=== PATIENT | female | born 1955 | race Caucasian/White ===

== ENCOUNTER 2017-09-04 23:27 | Emergency (ER) | payer OTHER ==
[~2017-09-04 23:27] MED LIST: ACET1TAB12 PO; ASPI-1005 PO; ATOR20TA65 PO; AUD IH; CHOL200074 PO; DICY10 PO; GABA-531 PO; PROM25 PO; Valsartan PO
== END 2017-09-05 00:25 | disposition left against medical advice (07) ==
LOC: EDH 23:27
DX: Z53.21 Procedure and treatment not carried out due to patient leaving prior to being seen by health care provider (principal)

== ENCOUNTER → 2018-04-27 | Outpatient (CLI) | payer OTHER | END | disposition home or self-care (01) | LOC: SHCH 13:40 | PROVIDERS: ATTEND Internal Medicine Cardiovascular Disease | DX: I35.1 Nonrheumatic aortic (valve) insufficiency (principal) | CPT/HCPCS: 93306 ==

== ENCOUNTER → 2018-12-20 | Outpatient (CLI) | payer OTHER | END | disposition home or self-care (01) | LOC: RAH 07:57 | DX: Z12.31 Encounter for screening mammogram for malignant neoplasm of breast (principal) | CPT/HCPCS: 77067 ==

== ENCOUNTER 2019-03-03 12:58 | Emergency (ER) | payer OTHER ==
[2019-03-03 13:15] LABS: BASOPHILS % (AUTO) 0.5 % (0.0-5.0); EOSINOPHILS % (AUTO) 3.4 % (0.0-8.0); HEMATOCRIT 38.4 % (36-48); LYMPHOCYTES % (AUTO) 34.8 % (21.0-51.0); MEAN CORPUSCULAR HEMOGLOBIN 30.1 pg (27.0-33.0); MEAN CORPUSCULAR HGB CONC 31.5 g/dL (32.0-36.0); MEAN CORPUSCULAR VOLUME 95.5 fL (79-99); PLATELET COUNT (AUTO) 279 K/uL (130-400); RED BLOOD CELL COUNT(AUTO) 4.02 MIL/uL (4.00-5.50); RED CELL DISTRIBUTION WIDTH 12.4 % (11.0-15.5); WHITE BLOOD COUNT (AUTO) 7.3 K/uL (4.8-10.8)
[2019-03-03] MEDS ORDERED: ONDANSETRON HCL 4 MG/2 ML VIAL ONE ×2 (13:26→16:04)
[2019-03-03] MEDS ORDERED: MORPHINE SULFATE 4 MG/1ML SYG ONE ×2 (13:26→13:36)
[2019-03-03 13:27] LABS: CREATININE 0.9 mg/dL (0.5-1.5); POTASSIUM 4.5 mmol/L (3.5-5.1)
[2019-03-03] MEDS ORDERED: HYDROMORPHONE 1 MG/1 ML AMP ONE ×3 (13:59→15:58)
[2019-03-03] MEDS ORDERED: KETAMINE 50MG/ML SYRINGE 50 MG/ML DISP.SYRIN IV ONE (15:54)
[2019-03-03] MEDS ORDERED: SODIUM CHLORIDE 0.9% 1000ML 1,000 ML IV ONE (16:09)
[2019-03-03] MEDS ORDERED: LABETALOL 20 MG/4 ML DISP.SYRIN IV ONE (16:25)
== END 2019-03-03 17:54 | disposition home or self-care (01) ==
LOC: EDH 12:58
DX: S52.501A Unspecified fracture of the lower end of right radius, initial encounter for closed fracture (principal); I10 Essential (primary) hypertension; Z90.710 Acquired absence of both cervix and uterus; Z98.890 Other specified postprocedural states; Z87.891 Personal history of nicotine dependence; W11.XXXA Fall on and from ladder, initial encounter; Y93.89 Activity, other specified; Y92.89 Other specified places as the place of occurrence of the external cause; Y99.8 Other external cause status
CPT/HCPCS: 25605; 36415; 73110 ×2; 80048; 85025; 96374; 96375; 96376; 99152; 99153; 99285; J1170 ×3; J2270 ×2; J2405 ×2; J3490; J7030

== ENCOUNTER 2019-03-12 07:19 | Day surgery (SDC) | payer OTHER ==
[2019-03-09 13:09] LABS: BASOPHILS % (AUTO) 0.4 % (0.0-5.0); EOSINOPHILS % (AUTO) 1.8 % (0.0-8.0); HEMATOCRIT 36.7 % (36-48); LYMPHOCYTES % (AUTO) 28.6 % (21.0-51.0); MEAN CORPUSCULAR HEMOGLOBIN 29.8 pg (27.0-33.0); MEAN CORPUSCULAR HGB CONC 30.2 g/dL (32.0-36.0); MEAN CORPUSCULAR VOLUME 98.4 fL (79-99); MONOCYTES % (AUTO) 7.1 % (3.0-13.0); NEUTROPHILS % (AUTO) 61.7 % (40.0-77.0); PLATELET COUNT (AUTO) 305 K/uL (130-400); RED BLOOD CELL COUNT(AUTO) 3.73 MIL/uL (4.00-5.50); RED CELL DISTRIBUTION WIDTH 12.8 % (11.0-15.5); WHITE BLOOD COUNT (AUTO) 6.7 K/uL (4.8-10.8)
[2019-03-09 13:22] LABS: CREATININE 0.8 mg/dL (0.5-1.5); POTASSIUM 4.9 mmol/L (3.5-5.1)
[2019-03-09 13:23] VITALS: BP 149/77
--- NOTE | 2019-03-09 19:23 | NUR ---
ABNORMAL LABS H/H 11.1/36.[address] CASTELLON. NO FURTHER ORDERS, MAY PROCEED WITH PLANNED PROCEDURE.
[~2019-03-12] VITALS: Ht 162.6 cm; Wt 62.9 kg
[2019-03-12] VITALS (14 sets, daily range): BP systolic 98–138; BP diastolic 36–77
[2019-03-12] MEDS: CEFAZOLIN SODIUM 1 GM VIAL IVP SCH ×2 (06:00→09:55)
[~2019-03-12 07:19] MED LIST changes: -ASPI-1005 PO; -ATOR20TA65 PO; -CHOL200074 PO; +ZOLP10TA2 PO
[2019-03-12] MEDS ORDERED: LACTATED RINGERS 1000ML 1,000 ML IV ONE (07:31)
[2019-03-12] MEDS ORDERED: HYDR-4060 PO ×2 (07:48→14:05)
[2019-03-12] MEDS ORDERED: HYDROMORPHONE 1 MG/1 ML AMP ONE (08:45)
[2019-03-12] MEDS ORDERED: MIDAZOLAM HCL 1 MG/ML 2ML VIAL ONE (09:05)
[2019-03-12] MEDS ORDERED: LIDOCAINE PF 2% 5ML ABBOJECT ONE (09:05)
[2019-03-12] MEDS ORDERED: PROPOFOL 10 MG/ML 20ML VIAL IV ONE (09:05)
[2019-03-12] MEDS ORDERED: ROCURONIUM 10MG/1ML SYR 10 MG/ML ML ONE (09:06)
[2019-03-12] MEDS ORDERED: FENTANYL CITRATE PF 50 MCG/1 ML 2ML VIAL ONE ×2 (09:07→14:01)
[2019-03-12] MEDS ORDERED: ONDANSETRON HCL 4 MG/2 ML VIAL ONE (09:08)
[2019-03-12] MEDS ORDERED: DEXMEDETOMIDINE HCL 200 MCG in SODIUM CHLORIDE 0.9% 50 ML IV SCH (10:00)
[2019-03-12] MEDS ORDERED: MEPERIDINE-PF 25 MG/ML SYG ONE ×2 (10:17→12:55)
[2019-03-12] MEDS ORDERED: CEFAZOLIN SODIUM 1 GM VIAL ONE ×2 (10:35→13:46)
[2019-03-12] MEDS ORDERED: EPHEDRINE SULFATE 50 MG/ML AMPULE ONE (10:53)
[2019-03-12] MEDS ORDERED: KETOROLAC TROMETHAMINE 30MG/ML ONE (13:15)
[2019-03-12] MEDS ORDERED: METOCLOPRAMIDE 10 MG/2 ML VIAL ONE (13:26)
[2019-03-12] MEDS ORDERED: NEOSTIGMINE 5MG/5ML SYR IV ONE (14:02)
[2019-03-12] MEDS ORDERED: GLYCOPYRROLATE 1 MG/5 ML SYRINGE ONE (14:02)
[2019-03-12] MEDS ORDERED: CEPH500B PO (14:05)
[2019-03-12] MEDS ORDERED: IBUP-2070 PO (14:05)
--- NOTE | 2019-03-12 15:10 | NUR ---
PATIENT ARRIVED TO DAY PATIENT VIA STRETCHER BY MADY DANIEL. PATIENT [id number], RESPIRATIONS UNLABORED, VITAL SIGNS STABLE, DENIES ANY PAIN AT THIS TIME. DRESSING TO RIGHT WRIST WITH CARROL WRAP IS DRY AND INTACT. PATIENT ABLE TO MOVE FINGERS TO RIGHT HAND AND LEFT HAND. SLING IN PLACE TO RUE. PATIENT STATES THAT RIGHT ARM IS "NUMB". PATIENT'S SPOUSE AT BEDSIDE.
--- NOTE | 2019-03-12 15:15 | NUR ---
DISCHARGE INSTRUCTIONS PROVIDED TO PATIENT'S SPOUSE (BLAKE MARTIN). HANDOUTS PROVIDED WITH DR CASTELLON INSTRUCTIONS PROVIDED AND EXPLAINED. PRESCRIPTIONS PROVIDED AND FOLLOW UP APPOINTMENT PROVIDED. ALL QUESTIONS AND CONCERNS ADDRESSED. PATIENT'S SPOUSE VERBALIZED UNDERSTANDING OF INSTRUCTIONS.
--- NOTE | 2019-03-12 15:50 | NUR ---
PATIENT DISCHARGED FROM FACILITY VIA WHEELCHAIR BY NURSE. PATIENT ASSISTED INTO PRIVATE VEHICLE DRIVEN BY SPOUSE.
== END 2019-03-12 15:50 | disposition home or self-care (01) ==
LOC: DAH 07:19
PROVIDERS: ATTEND Orthopaedic Surgery
DX: S52.501A Unspecified fracture of the lower end of right radius, initial encounter for closed fracture (principal); I10 Essential (primary) hypertension; E78.5 Hyperlipidemia, unspecified; G62.9 Polyneuropathy, unspecified; J44.9 Chronic obstructive pulmonary disease, unspecified; Z98.890 Other specified postprocedural states; Z90.710 Acquired absence of both cervix and uterus; W19.XXXA Unspecified fall, initial encounter; Y93.89 Activity, other specified; Y92.89 Other specified places as the place of occurrence of the external cause; Y99.8 Other external cause status; Z79.899 Other long term (current) drug therapy
CPT/HCPCS: 25609; 36415; 64415; 73110; 76942; 80048; 85025; A4215; A4221; A4222; A4223; A4565; A4649 ×3; A4663; A4930; C1713 ×6; C1762; C1776 ×2; G0168; J0690 ×3; J1170; J1885; J2001; J2175 ×2; J2250; J2405; J2704; J2710; J2765; J3010 ×2; J3490 ×3; J7120 ×2

== ENCOUNTER → 2020-01-23 | Outpatient (CLI) | payer OTHER ==
[~2020-01-23] MED LIST changes: -ACET1TAB12 PO; +CEPH500B PO; +HYDR-4060 PO; +IBUP-2070 PO
== END | disposition home or self-care (01) ==
LOC: SHCH 14:26
PROVIDERS: ATTEND Internal Medicine Cardiovascular Disease
DX: R00.2 Palpitations (principal)
CPT/HCPCS: 93306; 93356

== ENCOUNTER → 2020-01-29 | Outpatient (CLI) | payer OTHER | END | disposition home or self-care (01) | LOC: SHCH 10:00 | PROVIDERS: ATTEND Internal Medicine Cardiovascular Disease | DX: I65.23 Occlusion and stenosis of bilateral carotid arteries (principal); H34.9 Unspecified retinal vascular occlusion | CPT/HCPCS: 93880 ==

== ENCOUNTER 2020-02-29 06:05 | Day surgery (SDC) | payer OTHER ==
[2020-02-27 10:15] LABS: BILIRUBIN,URINE Negative (NEGATIVE); COLOR,URINE Yellow (YELLOW); GLUCOSE, URINE (UA) Negative (NEGATIVE); KETONES,URINE Negative (NEGATIVE); LEUKOCYTE ESTERASE ,URINE Negative (NEGATIVE); NITRATE,URINE Negative (NEGATIVE); OCCULT BLOOD,URINE Negative (NEGATIVE); PH,URINE 5.5 (5.0-8.0); PROTEIN,URINE Negative (NEGATIVE); UROBILINOGEN,URINE 0.2 mg/dL (0.2-1.0)
[2020-02-27 10:20] LABS: APPEARANCE,URINE Clear (CLEAR)
[2020-02-27 10:29] LABS: BASOPHILS % (AUTO) 0.2 % (0.0-5.0); EOSINOPHILS % (AUTO) 0.1 % (0.0-8.0); HEMATOCRIT 39.7 % (36-48); MEAN CORPUSCULAR HEMOGLOBIN 30.8 pg (27.0-33.0); MEAN CORPUSCULAR HGB CONC 31.7 g/dL (32.0-36.0); MEAN CORPUSCULAR VOLUME 97.1 fL (79-99); MONOCYTES % (AUTO) 1.9 % (3.0-13.0); NEUTROPHILS % (AUTO) 87.5 % (40.0-77.0); PLATELET COUNT (AUTO) 295 K/uL (130-400); RED BLOOD CELL COUNT(AUTO) 4.09 MIL/uL (4.00-5.50); RED CELL DISTRIBUTION WIDTH 12.9 % (11.0-15.5); WHITE BLOOD COUNT (AUTO) 11.7 K/uL (4.8-10.8)
[2020-02-27 10:40] LABS: CREATININE 0.8 mg/dL (0.5-1.5); POTASSIUM 4.2 mmol/L (3.5-5.1)
[2020-02-27 10:51] LABS: INR 0.88 (0.85-1.15); PARTIAL THROMBOPLASTIN TIME 24.3 SEC (26.3-35.5); PROTHROMBIN TIME 9.5 SEC (9.6-11.6)
[2020-02-27 14:18] VITALS: BP 174/83
[~2020-02-29] VITALS: Ht 233.7 cm; Wt 61.6 kg
[2020-02-29] VITALS (9 sets, daily range): BP systolic 125–157; BP diastolic 66–87
[~2020-02-29 06:05] MED LIST changes: +ACET1TAB25 PO; +ALBU8.5H8 IH; -AUD IH; +BUDE10.2 IH; -CEPH500B PO; +CLOP75TA32 PO; -GABA-531 PO; -HYDR-4060 PO; -IBUP-2070 PO; +METH4TAB15 PO; +PANT40TA54 PO; +ROSU20TA23 PO; +SODIUM CHLORIDE 0.9% 500ML 500 ML IV SCH; +TIZA4CAP PO; +VALS320T16 PO; -Valsartan PO; -ZOLP10TA2 PO
[2020-02-29] MEDS ORDERED: SODIUM CHLORIDE 0.9% 1000ML 1,000 ML IV ONE (07:04)
[2020-02-29] MEDS ORDERED: SODIUM BICARB 50MEQ 50ML VIAL 50 ML ONE (07:05)
[2020-02-29] MEDS ORDERED: HEPARIN SODIUM 1000UNIT/ML 10ML VIAL ONE (07:06)
[2020-02-29] MEDS ORDERED: IODIXANOL 320 MG/ML 100 ML VIAL ONE ×2 (07:06→07:11)
[2020-02-29] MEDS ORDERED: MIDAZOLAM HCL 1 MG/ML 2ML VIAL ONE (07:07)
[2020-02-29] MEDS ORDERED: FENTANYL CITRATE PF 50 MCG/1 ML 2ML VIAL ONE (07:07)
[2020-02-29] MEDS ORDERED: LIDOCAINE HCL 2% 20ML ONE (07:07)
[2020-02-29] MEDS ORDERED: NITROGLYCERIN 2 MG/VIAL VIAL IV ONE (07:12)
[2020-02-29] MEDS ORDERED: PRASUGREL HCL 10 MG TABLET ONE (08:07)
[2020-02-29] MEDS ORDERED: LABETALOL HCL 5 MG/ML 20ML VIAL IV ONE (08:19)
[2020-02-29] MEDS ORDERED: SODIUM CHLORIDE 0.9% 1000ML 1,000 ML IV SCH (09:15)
== END 2020-02-29 12:00 | disposition home or self-care (01) ==
LOC: DAH 06:05
PROVIDERS: ATTEND Internal Medicine Cardiovascular Disease
DX: I65.23 Occlusion and stenosis of bilateral carotid arteries (principal); I11.0 Hypertensive heart disease with heart failure; I50.32 Chronic diastolic (congestive) heart failure; E85.9 Amyloidosis, unspecified; E78.5 Hyperlipidemia, unspecified; J44.9 Chronic obstructive pulmonary disease, unspecified; F17.210 Nicotine dependence, cigarettes, uncomplicated; R93.1 Abnormal findings on diagnostic imaging of heart and coronary circulation; M47.814 Spondylosis without myelopathy or radiculopathy, thoracic region; Z72.89 Other problems related to lifestyle; Z90.710 Acquired absence of both cervix and uterus; Z79.899 Other long term (current) drug therapy; Z98.890 Other specified postprocedural states; Z86.73 Personal history of transient ischemic attack (TIA), and cerebral infarction without residual deficits; Z79.01 Long term (current) use of anticoagulants
CPT/HCPCS: 36223; 36415; 71045; 80048; 81003; 85025; 85610; 85730; 93005; A4215; A4216; A4221; A4222; A4223 ×3; A4606; A4663; C1760; C1769; C1894 ×2; J1644; J2250; J3010; J3490 ×4; J7030; Q9967 ×2; 99156; 99157

== ENCOUNTER 2020-06-06 08:02 | Day surgery (SDC) | payer OTHER ==
[2020-06-04 10:37] LABS: BASOPHILS % (AUTO) 0.7 % (0.0-5.0); EOSINOPHILS % (AUTO) 1.7 % (0.0-8.0); HEMATOCRIT 38.2 % (36-48); LYMPHOCYTES % (AUTO) 22.6 % (21.0-51.0); MEAN CORPUSCULAR HEMOGLOBIN 29.9 pg (27.0-33.0); MEAN CORPUSCULAR HGB CONC 31.4 g/dL (32.0-36.0); MONOCYTES % (AUTO) 4.8 % (3.0-13.0); NEUTROPHILS % (AUTO) 69.9 % (40.0-77.0); PLATELET COUNT (AUTO) 336 K/uL (130-400); RED BLOOD CELL COUNT(AUTO) 4.02 MIL/uL (4.00-5.50); RED CELL DISTRIBUTION WIDTH 12.9 % (11.0-15.5)
[2020-06-04 10:51] LABS: INR 0.94 (0.85-1.15); PROTHROMBIN TIME 10.3 SEC (9.6-11.6)
[2020-06-04 10:52] LABS: PARTIAL THROMBOPLASTIN TIME 24.8 SEC (26.3-35.5)
[2020-06-04 10:53] LABS: CREATININE 0.8 mg/dL (0.5-1.5); POTASSIUM 4.1 mmol/L (3.5-5.1)
[2020-06-05 10:31] VITALS: BP 186/79
[2020-06-06] VITALS (10 sets, daily range): BP systolic 114–148; BP diastolic 56–87
[~2020-06-06] VITALS: Ht 160 cm; Wt 62.1 kg
[~2020-06-06 08:02] MED LIST changes: -ALBU8.5H8 IH; -BUDE10.2 IH; +CEFAZOLIN SODIUM 1 GM VIAL IVP SCH; -CLOP75TA32 PO; +LINA145C PO; -METH4TAB15 PO; +PRAS10TA9 PO; +ZOLP10TA2 PO
[2020-06-06] MEDS ORDERED: SODIUM CHLORIDE 0.9% 1000ML 1,000 ML IV ONE (08:07)
[2020-06-06] MEDS ORDERED: MEPERIDINE-PF 25 MG/ML SYG ONE ×2 (08:22→09:27)
[2020-06-06] MEDS ORDERED: CEFAZOLIN SODIUM 1 GM VIAL ONE (08:22)
[2020-06-06] MEDS ORDERED: BUPIVACAINE/PF 0.25% 30ML VIAL IJ ONE (08:22)
[2020-06-06] MEDS ORDERED: IOHEXOL-350 50ML VIAL IV ONE (08:22)
[2020-06-06] MEDS ORDERED: MIDAZOLAM HCL 1 MG/ML 2ML VIAL ONE ×3 (08:22→09:51)
[2020-06-06] MEDS ORDERED: LIDOCAINE HCL 1% MDV 50ML VIAL ONE (08:23)
[2020-06-06] MEDS ORDERED: FENTANYL CITRATE PF 50 MCG/1 ML 2ML VIAL ONE ×2 (09:51→10:35)
[2020-06-06] MEDS: ACETAMINOPHEN-CODEINE 300/30MG TAB PO PRN ×2 (13:34→14:33)
== END 2020-06-06 15:20 | disposition home or self-care (01) ==
LOC: DAH 08:02
PROVIDERS: ATTEND Internal Medicine Cardiovascular Disease
DX: I46.9 Cardiac arrest, cause unspecified (principal); I49.5 Sick sinus syndrome; I65.23 Occlusion and stenosis of bilateral carotid arteries; I10 Essential (primary) hypertension; E78.5 Hyperlipidemia, unspecified; I73.9 Peripheral vascular disease, unspecified; J44.9 Chronic obstructive pulmonary disease, unspecified; Z90.710 Acquired absence of both cervix and uterus; Z98.890 Other specified postprocedural states; Z79.01 Long term (current) use of anticoagulants; Z79.82 Long term (current) use of aspirin; Z79.899 Other long term (current) drug therapy
CPT/HCPCS: 33208; 33286; 36415; 71045; 80048; 85025; 85610; 85730; A4215; A4216; A4221; A4222; A4223 ×3; A4606; A4649; A4663; C1785; C1898 ×2; J0690; J2175 ×2; J2250 ×3; J3010 ×2; J3490 ×2; J7030; Q9967; 99156; 99157

== ENCOUNTER → 2022-11-02 | Outpatient (CLI) | payer OTHER ==
[~2022-11-02] MED LIST changes: +ACET-2079 PO; -ACET1TAB25 PO; -CEFAZOLIN SODIUM 1 GM VIAL IVP SCH; -DICY10 PO; -LINA145C PO; +PANT40TA PO; -PANT40TA54 PO; -SODIUM CHLORIDE 0.9% 500ML 500 ML IV SCH; -TIZA4CAP PO
== END | disposition home or self-care (01) ==
LOC: RAH 10:33
PROVIDERS: ATTEND Family Medicine
DX: Z12.31 Encounter for screening mammogram for malignant neoplasm of breast (principal)
CPT/HCPCS: 77067

== ENCOUNTER 2023-02-08 21:06 | Inpatient (IN) | payer OTHER ==
[~2023-02-08] VITALS: Ht 154.9 cm; Wt 69.9 kg
[2023-02-08] MEDS ORDERED: 0.9%NACL 1000ML 1,000 ML IV ONE (21:30)
[2023-02-08 21:48] LABS: BASOPHILS # (AUTO) 0.02 K/uL (0.00-0.20); BASOPHILS % (AUTO) 0.2 % (0.0-5.0); HEMATOCRIT 29.4 % (36-48); IMMATURE GRANULOCYTE ABSOLUTE 0.09 K/uL (0-1); LYMPHOCYTES # (AUTO) 0.3 K/uL (1.0-4.8); LYMPHOCYTES % (AUTO) 3.1 % (21.0-51.0); MEAN CORPUSCULAR HEMOGLOBIN 30.7 pg (27.0-33.0); MEAN CORPUSCULAR HGB CONC 33.7 g/dL (32.0-36.0); MEAN CORPUSCULAR VOLUME 91.3 fL (79-99); MONOCYTES # (AUTO) 0.6 K/uL (0.1-1.0); MONOCYTES % (AUTO) 6.7 % (3.0-13.0); NEUTROPHILS # (AUTO) 8.2 K/uL (1.8-7.7); PLATELET COUNT (AUTO) 166 K/uL (130-400); RED BLOOD CELL COUNT(AUTO) 3.22 MIL/uL (4.00-5.50); RED CELL DISTRIBUTION WIDTH 16.6 % (11.0-15.5); WHITE BLOOD COUNT (AUTO) 9.2 K/uL (4.8-10.8)
[2023-02-08 21:53] LABS: APPEARANCE,URINE CLOUDY (CLEAR); BILIRUBIN,URINE NEGATIVE (NEGATIVE); COLOR,URINE YELLOW (YELLOW); GLUCOSE, URINE (UA) NEGATIVE (NEGATIVE); KETONES,URINE NEGATIVE (NEGATIVE); LEUKOCYTE ESTERASE ,URINE 500 Leu/uL (NEGATIVE); NITRATE,URINE NEGATIVE (NEGATIVE); OCCULT BLOOD,URINE MODERATE (NEGATIVE); PROTEIN,URINE 300 mg/dL (NEGATIVE); UROBILINOGEN,URINE 0.2 mg/dL (0.2-1.0)
[2023-02-08 22:01] LABS: ADD UA MICROSCOPIC YES
[2023-02-08 22:03] LABS: INR 0.94 (0.85-1.15); PROTHROMBIN TIME 10.9 SEC (9.6-11.6)
[2023-02-08 22:04] LABS: PARTIAL THROMBOPLASTIN TIME 33.8 SEC (26.3-35.5)
[2023-02-08 22:07] LABS: BACTERIA,URINE FEW /HPF (None Seen); MUCUS,URINE RARE LPF (None Seen); NON-SQUAMOUS EPITHELIAL CELL 2 /HPF (0-2); OTHER CASTS, URINE 3 /LPF (None Seen); SQUAMOUS EPITHELIAL CELL,UR RARE /HPF (0-2); WBC CLUMP MANY /HPF (0-1); WBC,URINE TNTC /HPF (0-1); YEAST,URINE BUDDING FEW /HPF (None Seen)
[2023-02-08 22:25] LABS: ALBUMIN 3.1 g/dL (3.5-5.0); BILIRUBIN,TOTAL 0.6 mg/dL (0.2-1.0); POTASSIUM 4.5 mmol/L (3.5-5.1); TOTAL PROTEIN, SERUM 6.5 g/dL (6.0-8.3)
[2023-02-08] MEDS ORDERED: 0.9%NACL 1000ML 2,000 ML IV ONE (22:30)
[2023-02-08] MEDS ORDERED: CEFTRIAXONE 1G VIAL IVPB ONE (23:00)
[2023-02-08] MEDS ORDERED: LACTULOSE 20 GM/30 ML UDCUP PO PRN (23:30)
[2023-02-08] MEDS ORDERED: CEFTRIAXONE 1G VIAL 1 GM in 0.9%NACL 50ML 50 ML IV SCH (23:30)
[2023-02-08] MEDS ORDERED: 0.9%NACL 1000ML 1,000 ML IV SCH (23:30)
[2023-02-08] MEDS ORDERED: CEFTRIAXONE 1G VIAL IVPB SCH (23:45)
[2023-02-08] MEDS ORDERED: DEXMEDETOMIDINE 400MCG/NS100ML IV ONE (23:49)
[2023-02-08] MEDS ORDERED: SODIUM BICARB 50MEQ 50ML VIAL IV STA (23:57)
[2023-02-09] VITALS (83 sets, daily range): BP systolic 69–172; BP diastolic 38–103; PULSE 67–119; RESP 11–46; TEMP 98.3; O2SAT 92–97
[2023-02-09] MEDS ORDERED: SODIUM CHLORIDE 3% 500 ML IV SCH
[2023-02-09 00:04] LABS: ABG BASE EXCESS -16.7 mmol/L (-2.0-3.0); ABG HCO3 9.2 mmol/L (21.0-28.0); ABG OXYGEN SATURATION 95.7 % (95.0-99.0); ABG PCO2 23 mmHg (32-45); ABG PH 7.224 (7.35-7.450); CARBON MONOXIDE 0.3; DEVICE COMMENT RIGHT BRACHIAL; HHb 4.3; PO2, ARTERIAL BG 93.3 mmHg (83.0-108.0)
[2023-02-09] MEDS ORDERED: DEXTROSE 50%-WATER 50 ML DISP.SYRIN IV ONE (00:06)
[2023-02-09] MEDS: DEXMEDETOMIDINE 400MCG/NS100ML IV SCH ×3 (00:11→23:36)
[2023-02-09] MEDS: 0.9%NACL 1000ML 1,000 ML IV SCH ×8 (00:13→19:55)
[2023-02-09] MEDS ORDERED: SODIUM BICARB 50MEQ 50ML VIAL 100 ML ONE (00:17)
[2023-02-09 00:56] LABS: AMPHET/METH SCREEN,URINE NEGATIVE (NEGATIVE); BARBITURATE SCREEN, URINE NEGATIVE (NEGATIVE); BENZODIAZEPINES SCREEN,URINE NEGATIVE (NEGATIVE); CANNABINOID SCREEN,URINE NEGATIVE (NEGATIVE); COCAINE SCREEN,URINE NEGATIVE (NEGATIVE); OPIATE SCREEN,URINE POSITIVE (NEGATIVE); PHENCYCLIDINE SCREEN,URINE NEGATIVE (NEGATIVE)
[2023-02-09 01:16] LABS: SARS-CoV-2, RNA, NAAT NEGATIVE SARS CoV-2 (NEGATIVE)
[2023-02-09 01:18] LABS: INFLUENZA TYPE A Negative For Type A (NEGATIVE); INFLUENZA TYPE B Negative For Type B (NEGATIVE)
[2023-02-09] MEDS ORDERED: DEXTROSE 50%-WATER 50 ML DISP.SYRIN IV PRN (01:30)
[2023-02-09] MEDS ORDERED: 0.9%NACL 50ML IV SCH ×2 (01:30→15:30)
[2023-02-09] MEDS ORDERED: CALCIUM GLUC 1GM/10ML VIAL IVPB SCH ×2 (01:30→15:30)
[2023-02-09] MEDS ORDERED: GLUCAGON 1MG KIT 1 MG ML IM PRN (01:30)
[2023-02-09 02:32] LABS: POTASSIUM 3.1 mmol/L (3.5-5.1)
[2023-02-09] MEDS: POTASSIUM CHLORIDE 10MEQ/100ML 100 ML IV PRN ×2 (03:06→06:11)
[2023-02-09] MEDS: CEFTRIAXONE 1G VIAL IVPB SCH (05:33)
[2023-02-09 05:38] LABS: HEMATOCRIT 28.4 % (36-48); MEAN CORPUSCULAR HEMOGLOBIN 31.1 pg (27.0-33.0); MEAN CORPUSCULAR HGB CONC 34.2 g/dL (32.0-36.0); RED BLOOD CELL COUNT(AUTO) 3.12 MIL/uL (4.00-5.50); RED CELL DISTRIBUTION WIDTH 16.4 % (11.0-15.5); WHITE BLOOD COUNT (AUTO) 7.2 K/uL (4.8-10.8)
[2023-02-09 06:12] LABS: MAGNESIUM 1.5 mg/dL (1.80-2.40); PHOSPHORUS 10.9 mg/dL (2.5-4.9); POTASSIUM 3.3 mmol/L (3.5-5.1)
[2023-02-09 06:23] LABS: CREATININE 14.1 mg/dL (0.5-1.5)
[2023-02-09] MEDS: MAGNESIUM 2GM PREMIX 50ML 50 ML IV PRN (08:15)
[2023-02-09] MEDS: FAMOTIDINE 20MG VIAL IV SCH (08:15)
[2023-02-09 09:36] LABS: ABG BASE EXCESS -15.4 mmol/L (-2.0-3.0); ABG HCO3 11.2 mmol/L (21.0-28.0); ABG OXYGEN SATURATION 93.9 % (95.0-99.0); ABG PCO2 29 mmHg (32-45); ABG PH 7.206 (7.35-7.450); CARBON MONOXIDE 0.3; DEVICE COMMENT RR 3LNC; PO2, ARTERIAL BG 79.9 mmHg (83.0-108.0)
[2023-02-09] MEDS ORDERED: SODIUM BICARB 50MEQ 50ML VIAL IV ONE ×2 (10:00→10:30)
[2023-02-09] MEDS ORDERED: SODIUM BICARB 8.4% 50ML SYRING 150 MEQ in DEXTROSE 5%-WATER 1,000 ML IVP SCH (10:00)
[2023-02-09] MEDS ORDERED: SODIUM BICARB 50MEQ 50ML VIAL 150 ML ONE (10:11)
[2023-02-09 10:12] LABS: POTASSIUM 3.8 mmol/L (3.5-5.1)
[2023-02-09 10:18] LABS: CREATININE 13.8 mg/dL (0.5-1.5)
[2023-02-09] MEDS: SODIUM BICARB 50MEQ 50ML VIAL 150 MEQ in DEXTROSE 5%-WATER 1,000 ML IVPB SCH ×2 (10:52→16:11)
[2023-02-09] MEDS: CALCIUM GLUC 1GM 1 GM in 0.9%NACL 100ML 100 ML IV SCH ×2 (10:52→17:41)
[2023-02-09] MEDS: ONDANSETRON 4MG INJ IV PRN (12:54)
[2023-02-09] MEDS ORDERED: MIDAZOLAM HCL 1 MG/ML 2ML VIAL ONE (13:53)
[2023-02-09 14:00] LABS: POTASSIUM 3.2 mmol/L (3.5-5.1)
[2023-02-09 14:04] LABS: CREATININE 13.4 mg/dL (0.5-1.5)
[2023-02-09 15:41] LABS: HEMATOCRIT 28.5 % (36-48)
[2023-02-09 15:46] LABS: ABG BASE EXCESS -5.5 mmol/L (-2.0-3.0); ABG HCO3 18.1 mmol/L (21.0-28.0); ABG PCO2 29 mmHg (32-45); ABG PH 7.409 (7.35-7.450); CARBON MONOXIDE 0.3; PO2, ARTERIAL BG 79.4 mmHg (83.0-108.0); VENT MODE, BG 4LNC (ROOM AIR)
[2023-02-09] MEDS: HEPARIN 5,000 UNIT VIAL SQ SCH (15:54)
[2023-02-09 16:01] LABS: ALBUMIN 2.2 g/dL (3.5-5.0)
[2023-02-09 16:02] LABS: CREATININE 13.2 mg/dL (0.5-1.5)
[2023-02-09] MEDS: [UNRECOGNIZED DRUG - OTHER] IV SCH (16:11)
[2023-02-09] MEDS: M V I IV SCH (16:11)
[2023-02-09] MEDS: THIAMINE HCL IV SCH (16:11)
[2023-02-09] MEDS: FOLIC ACID IV SCH (16:11)
[2023-02-09] MEDS: KCL 20 MEQ ERTAB PO PRN ×2 (16:29→18:36)
[2023-02-09 16:32] LABS: HIV 1&2 ANTIBODY Non-Reactive (Negative); HIV-1 p24 Antigen Non-Reactive (Negative)
[2023-02-09] MEDS ORDERED: NON-FORMULARY MEDICATION 1 EACH (Zolpidem Tartrate (Ambien) 10 MG) PO PRN (17:00)
[2023-02-09 18:51] LABS: CREATININE 12.9 mg/dL (0.5-1.5)
[2023-02-09] MEDS ORDERED: ZOLPIDEM TARTRATE 5 MG TAB PO SCH (21:00)
[2023-02-10] VITALS (74 sets, daily range): BP systolic 112–185; BP diastolic 53–115; PULSE 72–130; RESP 11–35; TEMP 98.2–98.3; O2SAT 92–100
[2023-02-10] MEDS: ZOLPIDEM TARTRATE 5 MG TAB PO PRN ×2 (00:40→23:11)
[2023-02-10 01:05] LABS: CREATININE 8.8 mg/dL (0.5-1.5); POTASSIUM 2.8 mmol/L (3.5-5.1)
[2023-02-10] MEDS: POTASSIUM CHLORIDE 10MEQ/100ML 100 ML IV PRN ×3 (01:07→06:00)
[2023-02-10] MEDS: SODIUM BICARB 50MEQ 50ML VIAL 150 MEQ in DEXTROSE 5%-WATER 1,000 ML IVPB SCH ×4 (01:24→23:19)
[2023-02-10] MEDS ORDERED: DiphenhydrAMINE HCL 50 MG/ML VIAL IV ONE (02:30)
[2023-02-10] MEDS: HEPARIN 5,000 UNIT VIAL SQ SCH ×2 (02:40→14:38)
[2023-02-10] MEDS: DEXMEDETOMIDINE 400MCG/NS100ML IV SCH ×2 (03:40→08:14)
[2023-02-10 05:12] LABS: BASOPHILS # (AUTO) 0.01 K/uL (0.00-0.20); BASOPHILS % (AUTO) 0.1 % (0.0-5.0); EOSINOPHILS # (AUTO) 0.08 K/uL (0.00-0.70); EOSINOPHILS % (AUTO) 1.2 % (0.0-8.0); HEMATOCRIT 27.9 % (36-48); IMMATURE GRANULOCYTE ABSOLUTE 0.08 K/uL (0-1); LYMPHOCYTES # (AUTO) 0.4 K/uL (1.0-4.8); MEAN CORPUSCULAR HEMOGLOBIN 31.1 pg (27.0-33.0); MEAN CORPUSCULAR HGB CONC 35.5 g/dL (32.0-36.0); MEAN CORPUSCULAR VOLUME 87.7 fL (79-99); MONOCYTES # (AUTO) 0.8 K/uL (0.1-1.0); MONOCYTES % (AUTO) 11.1 % (3.0-13.0); NEUTROPHILS # (AUTO) 5.5 K/uL (1.8-7.7); NEUTROPHILS % (AUTO) 80.4 % (40.0-77.0); PLATELET COUNT (AUTO) 167 K/uL (130-400); RED BLOOD CELL COUNT(AUTO) 3.18 MIL/uL (4.00-5.50); RED CELL DISTRIBUTION WIDTH 16.2 % (11.0-15.5); WHITE BLOOD COUNT (AUTO) 6.9 K/uL (4.8-10.8)
[2023-02-10 05:30] LABS: % IRON SATURATION 29.3 % (22-44)
[2023-02-10 05:46] LABS: BILIRUBIN,TOTAL 0.5 mg/dL (0.2-1.0); MAGNESIUM 1.6 mg/dL (1.80-2.40); PHOSPHORUS 4.6 mg/dL (2.5-4.9); POTASSIUM 3.6 mmol/L (3.5-5.1); TOTAL PROTEIN, SERUM 5.1 g/dL (6.0-8.3); URIC ACID 4.8 mg/dL (2.6-7.2)
[2023-02-10] MEDS: CEFTRIAXONE 1G VIAL IVPB SCH (05:48)
[2023-02-10 06:02] LABS: CREATININE 8.9 mg/dL (0.5-1.5)
[2023-02-10] MEDS: MAGNESIUM 2GM PREMIX 50ML 50 ML IV PRN (06:44)
[2023-02-10 07:32] LABS: AMPHET/METH SCREEN,URINE NEGATIVE (NEGATIVE); BARBITURATE SCREEN, URINE NEGATIVE (NEGATIVE); BENZODIAZEPINES SCREEN,URINE NEGATIVE (NEGATIVE); CANNABINOID SCREEN,URINE NEGATIVE (NEGATIVE); COCAINE SCREEN,URINE NEGATIVE (NEGATIVE); OPIATE SCREEN,URINE POSITIVE (NEGATIVE); PHENCYCLIDINE SCREEN,URINE NEGATIVE (NEGATIVE)
[2023-02-10] MEDS ORDERED: Vitamin B Complex/Vit C/Folic Acid PO ONE (09:30)
[2023-02-10] MEDS ORDERED: CALCIUM GLUC 1GM 1 GM in 0.9%NACL 100ML 100 ML IV SCH (09:30)
[2023-02-10] MEDS ORDERED: CALCIUM GLUC 1GM/10ML VIAL ONE (10:09)
[2023-02-10] MEDS: CALCIUM GLUC 1GM 1 GM in 0.9%NACL 100ML 100 ML IV SCH ×2 (10:16→15:34)
[2023-02-10] MEDS: METOCLOPRAMIDE 10 MG/2 ML VIAL IVP SCH ×3 (11:16→23:13)
[2023-02-10] MEDS ORDERED: CHLORDIAZEPOXIDE HCL 25 MG CAP PO ONE ×2 (12:00→21:00)
[2023-02-10 13:06] LABS: CREATININE 5.3 mg/dL (0.5-1.5); POTASSIUM 3.2 mmol/L (3.5-5.1)
[2023-02-10] MEDS: THIAMINE HCL IV SCH ×2 (13:46→15:33)
[2023-02-10] MEDS: FOLIC ACID IV SCH ×2 (13:46→15:33)
[2023-02-10] MEDS: [UNRECOGNIZED DRUG - OTHER] IV SCH ×2 (13:46→15:33)
[2023-02-10] MEDS: M V I IV SCH ×2 (13:46→15:33)
[2023-02-10] MEDS: LACTATED RINGERS 1000ML 1,000 ML IV SCH (14:37)
[2023-02-10] MEDS: KCL 20 MEQ ERTAB PO PRN ×3 (16:04→20:30)
[2023-02-10] MEDS: LORAZEPAM 2 MG/ML 1 ML VIAL IVP PRN (18:26)
[2023-02-10 18:50] LABS: CREATININE 5.6 mg/dL (0.5-1.5); POTASSIUM 3.2 mmol/L (3.5-5.1)
[2023-02-10] MEDS: HYDRALAZINE 20MG/ML VIAL IV PRN (23:13)
[2023-02-11] VITALS (34 sets, daily range): BP systolic 12–187; BP diastolic 71–110; PULSE 76–121; RESP 11–24; TEMP 98.2–98.3; O2SAT 90–100
[2023-02-11] MEDS: LORAZEPAM 2 MG/ML 1 ML VIAL IVP PRN (02:33)
[2023-02-11] MEDS: HEPARIN 5,000 UNIT VIAL SQ SCH ×3 (02:35→17:06)
[2023-02-11 04:02] LABS: HEMATOCRIT 28.9 % (36-48); MEAN CORPUSCULAR HEMOGLOBIN 30.8 pg (27.0-33.0); MEAN CORPUSCULAR HGB CONC 33.6 g/dL (32.0-36.0); MEAN CORPUSCULAR VOLUME 91.7 fL (79-99); RED BLOOD CELL COUNT(AUTO) 3.15 MIL/uL (4.00-5.50); RED CELL DISTRIBUTION WIDTH 17.2 % (11.0-15.5); WHITE BLOOD COUNT (AUTO) 9.2 K/uL (4.8-10.8)
[2023-02-11 04:36] LABS: ALBUMIN 1.9 g/dL (3.5-5.0); BILIRUBIN,TOTAL 0.7 mg/dL (0.2-1.0); CREATININE 6.3 mg/dL (0.5-1.5); POTASSIUM 3.5 mmol/L (3.5-5.1); TOTAL PROTEIN, SERUM 5.2 g/dL (6.0-8.3)
[2023-02-11] MEDS: METOCLOPRAMIDE 10 MG/2 ML VIAL IVP SCH ×4 (05:08→22:37)
[2023-02-11] MEDS: CEFTRIAXONE 1G VIAL IVPB SCH (05:09)
[2023-02-11 05:45] LABS: ABG BASE EXCESS -3.7 mmol/L (-2.0-3.0); ABG HCO3 20.7 mmol/L (21.0-28.0); ABG OXYGEN SATURATION 94.4 % (95.0-99.0); ABG PCO2 35 mmHg (32-45); CARBON MONOXIDE 0; HHb 5.6; PO2, ARTERIAL BG 76.1 mmHg (83.0-108.0); VENT MODE, BG VENTI MASK (ROOM AIR)
[2023-02-11] MEDS: SODIUM BICARB 50MEQ 50ML VIAL 150 MEQ in DEXTROSE 5%-WATER 1,000 ML IVPB SCH (08:29)
[2023-02-11] MEDS: Vitamin B Complex/Vit C/Folic Acid PO SCH (08:29)
[2023-02-11] MEDS: FAMOTIDINE 20MG VIAL IV SCH (08:29)
[2023-02-11] MEDS: LACTATED RINGERS 1000ML 1,000 ML IV SCH (09:23)
[2023-02-11] MEDS ORDERED: THIAMINE HCL 100 MG/ML 2ML VIAL IVP ONE (11:00)
[2023-02-11] MEDS: ONDANSETRON 4MG INJ IV PRN (11:20)
[2023-02-11 11:34] LABS: HEPATITIS B SURFACE ANTIBODY Positive (Reactive); HEPATITIS B SURFACE ANTIGEN Non-Reactive (Nonreactive)
[2023-02-11 11:35] LABS: HEPATITIS B CORE AB TOTAL Reactive (Nonreactive)
[2023-02-11] MEDS: HYDRALAZINE 20MG/ML VIAL IV PRN (12:12)
[2023-02-11] MEDS ORDERED: AMLODIPINE 5 MG TAB PO ONE (12:15)
[2023-02-11] MEDS: CHLORDIAZEPOXIDE HCL 25 MG CAP PO PRN (13:20)
[2023-02-11] MEDS ORDERED: HEPARIN 5,000 UNIT VIAL IV ONE (13:28)
[2023-02-11] MEDS: ATORVASTATIN 20 MG TABLET PO SCH (20:43)
[2023-02-11] MEDS ORDERED: METOPROLOL TARTRATE 25 MG TAB PO SCH (21:00)
[2023-02-12] VITALS (13 sets, daily range): BP systolic 153–187; BP diastolic 5–97; PULSE 88–113; RESP 17–22; O2SAT 88–96
[2023-02-12 03:48] LABS: BASOPHILS # (AUTO) 0.03 K/uL (0.00-0.20); BASOPHILS % (AUTO) 0.3 % (0.0-5.0); EOSINOPHILS # (AUTO) 0.19 K/uL (0.00-0.70); EOSINOPHILS % (AUTO) 2.1 % (0.0-8.0); HEMATOCRIT 29.9 % (36-48); IMMATURE GRANULOCYTE ABSOLUTE 0.21 K/uL (0-1); LYMPHOCYTES # (AUTO) 0.8 K/uL (1.0-4.8); LYMPHOCYTES % (AUTO) 8.4 % (21.0-51.0); MEAN CORPUSCULAR HEMOGLOBIN 30.3 pg (27.0-33.0); MEAN CORPUSCULAR HGB CONC 32.8 g/dL (32.0-36.0); MEAN CORPUSCULAR VOLUME 92.6 fL (79-99); MONOCYTES # (AUTO) 1.5 K/uL (0.1-1.0); MONOCYTES % (AUTO) 17.1 % (3.0-13.0); NEUTROPHILS # (AUTO) 6.3 K/uL (1.8-7.7); NEUTROPHILS % (AUTO) 69.8 % (40.0-77.0); PLATELET COUNT (AUTO) 254 K/uL (130-400); RED BLOOD CELL COUNT(AUTO) 3.23 MIL/uL (4.00-5.50); RED CELL DISTRIBUTION WIDTH 17.6 % (11.0-15.5)
[2023-02-12 04:10] LABS: CREATININE 5.5 mg/dL (0.5-1.5); POTASSIUM 3.5 mmol/L (3.5-5.1)
[2023-02-12] MEDS: METOCLOPRAMIDE 10 MG/2 ML VIAL IVP SCH ×4 (05:23→23:20)
[2023-02-12] MEDS: CEFTRIAXONE 1G VIAL IVPB SCH (05:23)
[2023-02-12] MEDS: ONDANSETRON 4MG INJ IV PRN ×3 (07:08→17:55)
[2023-02-12] MEDS: HYDRALAZINE 20MG/ML VIAL IV PRN (08:01)
[2023-02-12] MEDS ORDERED: AMLODIPINE 5 MG TAB PO SCH (09:00)
[2023-02-12] MEDS: METOPROLOL TARTRATE 25 MG TAB PO SCH ×2 (09:42→20:45)
[2023-02-12] MEDS: Vitamin B Complex/Vit C/Folic Acid PO SCH (09:42)
[2023-02-12] MEDS: THIAMINE HCL 100 MG/ML 2ML VIAL IVP SCH (09:43)
[2023-02-12] MEDS ORDERED: PRASUGREL HCL 10 MG TABLET PO ONE (11:30)
[2023-02-12] MEDS ORDERED: FUROSEMIDE 40MG VIAL IV ONE (14:00)
[2023-02-12] MEDS: HEPARIN 5,000 UNIT VIAL SQ SCH (15:08)
[2023-02-12] MEDS: LORAZEPAM 2 MG/ML 1 ML VIAL IVP PRN (19:15)
[2023-02-12] MEDS: ATORVASTATIN 20 MG TABLET PO SCH (20:45)
[2023-02-13] VITALS (9 sets, daily range): BP systolic 158–166; BP diastolic 75–85; PULSE 86–109; RESP 17–22; O2SAT 93–98
[2023-02-13] MEDS: HYDRALAZINE 20MG/ML VIAL IV PRN (00:31)
[2023-02-13] MEDS: ONDANSETRON 4MG INJ IV PRN ×2 (01:45→09:34)
[2023-02-13 03:48] LABS: HEMATOCRIT 29.6 % (36-48); MEAN CORPUSCULAR HEMOGLOBIN 30.2 pg (27.0-33.0); MEAN CORPUSCULAR HGB CONC 33.1 g/dL (32.0-36.0); MEAN CORPUSCULAR VOLUME 91.4 fL (79-99); RED BLOOD CELL COUNT(AUTO) 3.24 MIL/uL (4.00-5.50); WHITE BLOOD COUNT (AUTO) 12.2 K/uL (4.8-10.8)
[2023-02-13 04:11] LABS: ALBUMIN 1.8 g/dL (3.5-5.0); BILIRUBIN,TOTAL 0.5 mg/dL (0.2-1.0); MAGNESIUM 2.3 mg/dL (1.80-2.40); PHOSPHORUS 4.2 mg/dL (2.5-4.9); POTASSIUM 4.4 mmol/L (3.5-5.1); TOTAL PROTEIN, SERUM 5.7 g/dL (6.0-8.3)
[2023-02-13] MEDS: METOCLOPRAMIDE 10 MG/2 ML VIAL IVP SCH ×4 (05:16→23:16)
[2023-02-13] MEDS: CEFTRIAXONE 1G VIAL IVPB SCH (05:16)
[2023-02-13] MEDS: HEPARIN 5,000 UNIT VIAL SQ SCH ×2 (05:17→15:30)
[2023-02-13] MEDS: THIAMINE HCL 100 MG/ML 2ML VIAL IVP SCH (09:00)
[2023-02-13] MEDS: METOPROLOL TARTRATE 25 MG TAB PO SCH (09:35)
[2023-02-13] MEDS: PRASUGREL HCL 10 MG TABLET PO SCH (09:35)
[2023-02-13] MEDS: Vitamin B Complex/Vit C/Folic Acid PO SCH (09:35)
[2023-02-13] MEDS: AMLODIPINE 5 MG TAB PO SCH (09:35)
[2023-02-13] MEDS: FAMOTIDINE 20MG VIAL IV SCH (09:36)
[2023-02-13] MEDS: THIAMINE HCL 100 MG TABLET PO SCH (09:36)
[2023-02-13] MEDS ORDERED: ERGOCALCIFEROL (VITAMIN D2) 50,000 UNIT CAPSULE PO ONE (11:00)
[2023-02-13] MEDS: METOPROLOL TARTRATE 50 MG TAB PO SCH ×2 (13:58→19:53)
[2023-02-13] MEDS: PROMETHAZINE HCL 25 MG TABLET PO PRN ×2 (13:58→19:53)
[2023-02-13] MEDS: IPRATROPIUM 0.5 MG/2.5 ML INH IH SCH (19:24)
[2023-02-13] MEDS: ATORVASTATIN 20 MG TABLET PO SCH (19:53)
[2023-02-13] MEDS: LORAZEPAM 2 MG/ML 1 ML VIAL IVP PRN (19:54)
[2023-02-14] VITALS (37 sets, daily range): BP systolic 107–187; BP diastolic 56–93; PULSE 86–113; RESP 16–22; TEMP 98.1–98.6; O2SAT 92–96
[2023-02-14] MEDS: IPRATROPIUM 0.5 MG/2.5 ML INH IH SCH ×5 (00:05→23:14)
[2023-02-14] MEDS: HEPARIN 5,000 UNIT VIAL SQ SCH ×2 (03:04→15:30)
[2023-02-14 05:02] LABS: HEMATOCRIT 29.1 % (36-48); MEAN CORPUSCULAR HEMOGLOBIN 30.6 pg (27.0-33.0); MEAN CORPUSCULAR HGB CONC 33.3 g/dL (32.0-36.0); MEAN CORPUSCULAR VOLUME 91.8 fL (79-99); RED BLOOD CELL COUNT(AUTO) 3.17 MIL/uL (4.00-5.50); RED CELL DISTRIBUTION WIDTH 17.8 % (11.0-15.5); WHITE BLOOD COUNT (AUTO) 10.7 K/uL (4.8-10.8)
[2023-02-14 05:23] LABS: ALBUMIN 1.8 g/dL (3.5-5.0); BILIRUBIN,TOTAL 0.4 mg/dL (0.2-1.0); MAGNESIUM 2.3 mg/dL (1.80-2.40); POTASSIUM 3.6 mmol/L (3.5-5.1); TOTAL PROTEIN, SERUM 5.6 g/dL (6.0-8.3)
[2023-02-14] MEDS: METOCLOPRAMIDE 10 MG/2 ML VIAL IVP SCH ×4 (05:23→22:54)
[2023-02-14] MEDS: CEFTRIAXONE 1G VIAL IVPB SCH (05:30)
[2023-02-14 05:32] LABS: CREATININE 8.4 mg/dL (0.5-1.5)
[2023-02-14] MEDS: METOPROLOL TARTRATE 50 MG TAB PO SCH ×3 (08:16→20:09)
[2023-02-14] MEDS: AMLODIPINE 5 MG TAB PO SCH (08:16)
[2023-02-14] MEDS: Vitamin B Complex/Vit C/Folic Acid PO SCH (08:16)
[2023-02-14] MEDS: PRASUGREL HCL 10 MG TABLET PO SCH (08:16)
[2023-02-14] MEDS: HYDRALAZINE 20MG/ML VIAL IV PRN (08:16)
[2023-02-14] MEDS: THIAMINE HCL 100 MG TABLET PO SCH (08:16)
[2023-02-14] MEDS: CHLORDIAZEPOXIDE HCL 25 MG CAP PO PRN (09:19)
[2023-02-14] MEDS: LORAZEPAM 2 MG/ML 1 ML VIAL IVP PRN ×2 (11:23→20:10)
[2023-02-14] MEDS: CEFTRIAXONE 2GM VIAL IVPB SCH (11:28)
[2023-02-14] MEDS: EPOETIN ALFA-EPBX (NON-ESRD) 10,000 UNIT/ML VIAL SQ SCH (18:21)
[2023-02-14] MEDS: ATORVASTATIN 20 MG TABLET PO SCH (20:11)
[2023-02-14] MEDS ORDERED: ACETAMINOPHEN 500 MG TABLET PO ONE (23:00)
[2023-02-15] VITALS (13 sets, daily range): BP systolic 156–165; BP diastolic 72–88; PULSE 99–108; RESP 18–21; O2SAT 92–95
[2023-02-15] MEDS: HEPARIN 5,000 UNIT VIAL SQ SCH ×2 (03:30→14:38)
[2023-02-15 03:40] LABS: HEMATOCRIT 25.4 % (36-48); MEAN CORPUSCULAR HEMOGLOBIN 30.5 pg (27.0-33.0); MEAN CORPUSCULAR HGB CONC 33.1 g/dL (32.0-36.0); MEAN CORPUSCULAR VOLUME 92.4 fL (79-99); PLATELET COUNT (AUTO) 243 K/uL (130-400); RED BLOOD CELL COUNT(AUTO) 2.75 MIL/uL (4.00-5.50); RED CELL DISTRIBUTION WIDTH 18.1 % (11.0-15.5); WHITE BLOOD COUNT (AUTO) 9.4 K/uL (4.8-10.8)
[2023-02-15 04:16] LABS: CREATININE 6.4 mg/dL (0.5-1.5); PHOSPHORUS 3.4 mg/dL (2.5-4.9); POTASSIUM 3.8 mmol/L (3.5-5.1)
[2023-02-15] MEDS: METOCLOPRAMIDE 10 MG/2 ML VIAL IVP SCH ×4 (05:23→23:35)
[2023-02-15 06:30] LABS: INR < 0.93 (0.85-1.15); PROTHROMBIN TIME 9.9 SEC (9.6-11.6)
[2023-02-15] MEDS: IPRATROPIUM 0.5 MG/2.5 ML INH IH SCH ×4 (06:55→23:52)
[2023-02-15] MEDS: PRASUGREL HCL 10 MG TABLET PO SCH ×2 (07:55→14:50)
[2023-02-15] MEDS: THIAMINE HCL 100 MG TABLET PO SCH ×2 (07:56→14:51)
[2023-02-15] MEDS: METOPROLOL TARTRATE 50 MG TAB PO SCH ×4 (07:56→20:45)
[2023-02-15] MEDS: Vitamin B Complex/Vit C/Folic Acid PO SCH ×2 (07:56→14:50)
[2023-02-15] MEDS: AMLODIPINE 5 MG TAB PO SCH ×2 (07:56→14:51)
[2023-02-15] MEDS: FAMOTIDINE 20MG VIAL IV SCH (08:27)
[2023-02-15] MEDS: CEFTRIAXONE 2GM VIAL IVPB SCH (12:27)
[2023-02-15] MEDS: LORAZEPAM 2 MG/ML 1 ML VIAL IVP PRN (18:23)
[2023-02-15] MEDS: PANTOPRAZOLE 40 MG/VIAL IVP SCH (20:44)
[2023-02-15] MEDS: ATORVASTATIN 20 MG TABLET PO SCH (20:45)
[2023-02-15 21:14] LABS: HEMATOCRIT 22.4 % (36-48)
[2023-02-16] VITALS (26 sets, daily range): BP systolic 115–177; BP diastolic 61–96; PULSE 89–121; RESP 16–20; TEMP 98.3–98.4; O2SAT 90–93
[2023-02-16 03:57] LABS: BASOPHILS # (AUTO) 0.07 K/uL (0.00-0.20); BASOPHILS % (AUTO) 0.5 % (0.0-5.0); EOSINOPHILS # (AUTO) 0.28 K/uL (0.00-0.70); EOSINOPHILS % (AUTO) 2.1 % (0.0-8.0); LYMPHOCYTES # (AUTO) 1.3 K/uL (1.0-4.8); LYMPHOCYTES % (AUTO) 9.8 % (21.0-51.0); MEAN CORPUSCULAR HGB CONC 32.5 g/dL (32.0-36.0); MEAN CORPUSCULAR VOLUME 92.3 fL (79-99); MONOCYTES # (AUTO) 1.6 K/uL (0.1-1.0); MONOCYTES % (AUTO) 12.1 % (3.0-13.0); NEUTROPHILS # (AUTO) 9.8 K/uL (1.8-7.7); NEUTROPHILS % (AUTO) 73.3 % (40.0-77.0); PLATELET COUNT (AUTO) 283 K/uL (130-400); RED CELL DISTRIBUTION WIDTH 18.1 % (11.0-15.5); WHITE BLOOD COUNT (AUTO) 13.4 K/uL (4.8-10.8)
[2023-02-16 04:08] LABS: BILIRUBIN,TOTAL 0.4 mg/dL (0.2-1.0); PHOSPHORUS 4.1 mg/dL (2.5-4.9); POTASSIUM 3.5 mmol/L (3.5-5.1); TOTAL PROTEIN, SERUM 5.9 g/dL (6.0-8.3)
[2023-02-16 04:52] LABS: CREATININE 8.2 mg/dL (0.5-1.5)
[2023-02-16 04:58] LABS: WBC MORPHOLOGY CONSISTENT W/DIFF
[2023-02-16] MEDS: METOCLOPRAMIDE 10 MG/2 ML VIAL IVP SCH ×4 (05:29→23:08)
[2023-02-16] MEDS: HYDRALAZINE 20MG/ML VIAL IV PRN (06:40)
[2023-02-16] MEDS: IPRATROPIUM 0.5 MG/2.5 ML INH IH SCH ×4 (07:09→23:44)
[2023-02-16] MEDS: Vitamin B Complex/Vit C/Folic Acid PO SCH (08:12)
[2023-02-16] MEDS: PRASUGREL HCL 10 MG TABLET PO SCH ×2 (08:12→08:38)
[2023-02-16] MEDS: THIAMINE HCL 100 MG TABLET PO SCH (08:13)
[2023-02-16] MEDS: AMLODIPINE 5 MG TAB PO SCH (08:37)
[2023-02-16] MEDS: METOPROLOL TARTRATE 50 MG TAB PO SCH ×4 (08:37→20:30)
[2023-02-16] MEDS: PANTOPRAZOLE 40 MG/VIAL IVP SCH ×2 (08:37→20:29)
[2023-02-16 10:23] LABS: HEMATOCRIT 21.9 % (36-48)
[2023-02-16] MEDS ORDERED: OCTREOTIDE ACETATE 1,250 MCG in 0.9% NACL 250ML 250 ML IV SCH (11:30)
[2023-02-16] MEDS: LORAZEPAM 2 MG/ML 1 ML VIAL IVP PRN ×3 (11:58→23:09)
[2023-02-16] MEDS: CEFTRIAXONE 2GM VIAL IVPB SCH (12:12)
[2023-02-16] MEDS: EPOETIN ALFA-EPBX (NON-ESRD) 10,000 UNIT/ML VIAL SQ SCH (15:56)
[2023-02-16] MEDS: ACETAMINOPHEN WITH CODEINE 1 TAB TAB PO PRN (16:58)
[2023-02-16] MEDS ORDERED: ZOLPIDEM TARTRATE 5 MG TAB PO PRN (17:30)
[2023-02-16] MEDS: BALSAM PERU/CASTOR OIL 60 GM TUBE TP SCH (20:30)
[2023-02-16] MEDS: ACETAMINOPHEN 325 MG TAB PO PRN (20:30)
[2023-02-16] MEDS: ATORVASTATIN 20 MG TABLET PO SCH (20:30)
[2023-02-17] VITALS (30 sets, daily range): BP systolic 98–172; BP diastolic 39–83; PULSE 18–102; RESP 15–20; O2SAT 91–94
[2023-02-17 03:41] LABS: HEMATOCRIT 27.2 % (36-48); MEAN CORPUSCULAR HEMOGLOBIN 30.7 pg (27.0-33.0); MEAN CORPUSCULAR HGB CONC 33.1 g/dL (32.0-36.0); MEAN CORPUSCULAR VOLUME 92.8 fL (79-99); RED BLOOD CELL COUNT(AUTO) 2.93 MIL/uL (4.00-5.50); RED CELL DISTRIBUTION WIDTH 17.5 % (11.0-15.5); WHITE BLOOD COUNT (AUTO) 11.1 K/uL (4.8-10.8)
[2023-02-17 03:56] LABS: ALBUMIN 2.1 g/dL (3.5-5.0); BILIRUBIN,TOTAL 0.4 mg/dL (0.2-1.0); POTASSIUM 3.6 mmol/L (3.5-5.1)
[2023-02-17] MEDS: METOCLOPRAMIDE 10 MG/2 ML VIAL IVP SCH ×4 (05:17→23:50)
[2023-02-17] MEDS: LORAZEPAM 2 MG/ML 1 ML VIAL IVP PRN ×3 (05:18→21:11)
[2023-02-17] MEDS: ACETAMINOPHEN WITH CODEINE 1 TAB TAB PO PRN ×2 (06:21→16:23)
[2023-02-17] MEDS: IPRATROPIUM 0.5 MG/2.5 ML INH IH SCH ×4 (07:09→23:35)
[2023-02-17] MEDS ORDERED: PRASUGREL HCL 10 MG TABLET PO SCH ×2 (09:00)
[2023-02-17] MEDS ORDERED: PROPOFOL 10 MG/ML 20ML VIAL IV ONE (09:38)
[2023-02-17] MEDS: CEFTRIAXONE 2GM VIAL IVPB SCH (12:12)
[2023-02-17] MEDS: PANTOPRAZOLE 40 MG/VIAL IVP SCH ×2 (12:12→20:59)
[2023-02-17] MEDS: THIAMINE HCL 100 MG TABLET PO SCH (12:13)
[2023-02-17] MEDS: AMLODIPINE 5 MG TAB PO SCH (12:13)
[2023-02-17] MEDS: Vitamin B Complex/Vit C/Folic Acid PO SCH (12:13)
[2023-02-17] MEDS: METOPROLOL TARTRATE 50 MG TAB PO SCH ×3 (12:13→20:59)
[2023-02-17] MEDS: BALSAM PERU/CASTOR OIL 60 GM TUBE TP SCH ×2 (12:15→21:00)
[2023-02-17] MEDS: ATORVASTATIN 20 MG TABLET PO SCH (20:59)
[2023-02-18] VITALS (34 sets, daily range): BP systolic 106–174; BP diastolic 54–101; PULSE 67–107; RESP 16–21; TEMP 98.3–98.5; O2SAT 88–98
[2023-02-18] MEDS: ACETAMINOPHEN WITH CODEINE 1 TAB TAB PO PRN ×2 (00:11→18:54)
[2023-02-18] MEDS: LORAZEPAM 2 MG/ML 1 ML VIAL IVP PRN ×2 (04:21→22:02)
[2023-02-18 04:23] LABS: BASOPHILS # (AUTO) 0.08 K/uL (0.00-0.20); BASOPHILS % (AUTO) 0.6 % (0.0-5.0); EOSINOPHILS # (AUTO) 0.14 K/uL (0.00-0.70); HEMATOCRIT 29.7 % (36-48); IMMATURE GRANULOCYTE ABSOLUTE 0.27 K/uL (0-1); LYMPHOCYTES # (AUTO) 1.6 K/uL (1.0-4.8); LYMPHOCYTES % (AUTO) 11.8 % (21.0-51.0); MEAN CORPUSCULAR VOLUME 93.7 fL (79-99); MONOCYTES # (AUTO) 1.3 K/uL (0.1-1.0); NEUTROPHILS # (AUTO) 9.9 K/uL (1.8-7.7); NEUTROPHILS % (AUTO) 74.6 % (40.0-77.0); PLATELET COUNT (AUTO) 289 K/uL (130-400); RED BLOOD CELL COUNT(AUTO) 3.17 MIL/uL (4.00-5.50); RED CELL DISTRIBUTION WIDTH 17.4 % (11.0-15.5); WHITE BLOOD COUNT (AUTO) 13.3 K/uL (4.8-10.8)
[2023-02-18] MEDS: ACETAMINOPHEN 325 MG TAB PO PRN (04:34)
[2023-02-18 04:35] LABS: ALBUMIN 2.3 g/dL (3.5-5.0); BILIRUBIN,TOTAL 0.4 mg/dL (0.2-1.0); CREATININE 7.8 mg/dL (0.5-1.5); POTASSIUM 3.4 mmol/L (3.5-5.1); TOTAL PROTEIN, SERUM 6.4 g/dL (6.0-8.3)
[2023-02-18 04:37] LABS: INR < 0.93 (0.85-1.15); PROTHROMBIN TIME 10.3 SEC (9.6-11.6)
[2023-02-18 04:39] LABS: PARTIAL THROMBOPLASTIN TIME 26.8 SEC (26.3-35.5)
[2023-02-18] MEDS: METOCLOPRAMIDE 10 MG/2 ML VIAL IVP SCH ×4 (06:30→22:01)
[2023-02-18] MEDS: IPRATROPIUM 0.5 MG/2.5 ML INH IH SCH ×4 (06:49→23:09)
[2023-02-18] MEDS: PANTOPRAZOLE 40 MG/VIAL IVP SCH ×2 (09:37→22:01)
[2023-02-18] MEDS: EPOETIN ALFA-EPBX (NON-ESRD) 10,000 UNIT/ML VIAL SQ SCH ×2 (10:04→22:01)
[2023-02-18] MEDS: Vitamin B Complex/Vit C/Folic Acid PO SCH (10:04)
[2023-02-18] MEDS: THIAMINE HCL 100 MG TABLET PO SCH (10:05)
[2023-02-18] MEDS: AMLODIPINE 5 MG TAB PO SCH (10:05)
[2023-02-18] MEDS: METOPROLOL TARTRATE 50 MG TAB PO SCH ×3 (10:05→22:01)
[2023-02-18] MEDS: CEFTRIAXONE 2GM VIAL IVPB SCH (11:18)
[2023-02-18] MEDS: BALSAM PERU/CASTOR OIL 60 GM TUBE TP SCH ×2 (11:21→22:02)
[2023-02-18] MEDS ORDERED: HEPARIN 1,000 UNIT VIAL ONE (14:24)
[2023-02-18] MEDS ORDERED: LIDOCAINE HCL 1% MDV 50ML VIAL ONE (14:24)
[2023-02-18] MEDS: HEPARIN 5,000 UNIT VIAL IJ SCH (21:54)
[2023-02-18] MEDS: ATORVASTATIN 20 MG TABLET PO SCH (22:01)
[2023-02-19] VITALS (13 sets, daily range): BP systolic 124–164; BP diastolic 64–86; PULSE 85–102; RESP 16–20; O2SAT 93–95
[2023-02-19] MEDS: METOCLOPRAMIDE 10 MG/2 ML VIAL IVP SCH ×4 (05:26→23:56)
[2023-02-19 05:52] LABS: BASOPHILS # (AUTO) 0.05 K/uL (0.00-0.20); BASOPHILS % (AUTO) 0.5 % (0.0-5.0); EOSINOPHILS # (AUTO) 0.09 K/uL (0.00-0.70); EOSINOPHILS % (AUTO) 0.9 % (0.0-8.0); HEMATOCRIT 27.4 % (36-48); IMMATURE GRANULOCYTE ABSOLUTE 0.14 K/uL (0-1); LYMPHOCYTES # (AUTO) 1.3 K/uL (1.0-4.8); LYMPHOCYTES % (AUTO) 13.3 % (21.0-51.0); MEAN CORPUSCULAR HEMOGLOBIN 30.6 pg (27.0-33.0); MEAN CORPUSCULAR HGB CONC 32.5 g/dL (32.0-36.0); MEAN CORPUSCULAR VOLUME 94.2 fL (79-99); MONOCYTES # (AUTO) 1.1 K/uL (0.1-1.0); MONOCYTES % (AUTO) 11.5 % (3.0-13.0); NEUTROPHILS # (AUTO) 7.1 K/uL (1.8-7.7); NEUTROPHILS % (AUTO) 72.4 % (40.0-77.0); PLATELET COUNT (AUTO) 294 K/uL (130-400); RED BLOOD CELL COUNT(AUTO) 2.91 MIL/uL (4.00-5.50); RED CELL DISTRIBUTION WIDTH 17.3 % (11.0-15.5); WHITE BLOOD COUNT (AUTO) 9.8 K/uL (4.8-10.8)
[2023-02-19 06:08] LABS: CREATININE 5.4 mg/dL (0.5-1.5); POTASSIUM 3.1 mmol/L (3.5-5.1)
[2023-02-19] MEDS: IPRATROPIUM 0.5 MG/2.5 ML INH IH SCH ×4 (06:48→23:16)
[2023-02-19] MEDS: Vitamin B Complex/Vit C/Folic Acid PO SCH (09:45)
[2023-02-19] MEDS: METOPROLOL TARTRATE 50 MG TAB PO SCH ×3 (09:46→22:12)
[2023-02-19] MEDS: THIAMINE HCL 100 MG TABLET PO SCH (09:46)
[2023-02-19] MEDS: AMLODIPINE 5 MG TAB PO SCH (09:47)
[2023-02-19] MEDS: PANTOPRAZOLE 40 MG/VIAL IVP SCH ×2 (09:48→22:12)
[2023-02-19] MEDS: BALSAM PERU/CASTOR OIL 60 GM TUBE TP SCH ×2 (09:48→22:14)
[2023-02-19] MEDS: ACETAMINOPHEN WITH CODEINE 1 TAB TAB PO PRN (10:13)
[2023-02-19] MEDS: CEFTRIAXONE 2GM VIAL IVPB SCH (11:54)
[2023-02-19] MEDS: LORAZEPAM 2 MG/ML 1 ML VIAL IVP PRN ×2 (12:24→21:01)
[2023-02-19] MEDS: HYDRALAZINE 25MG TABLET PO SCH ×2 (15:41→22:11)
[2023-02-19] MEDS: ATORVASTATIN 20 MG TABLET PO SCH (22:11)
[2023-02-20] VITALS (14 sets, daily range): BP systolic 130–188; BP diastolic 64–99; PULSE 70–101; RESP 16–22; O2SAT 92–93
[2023-02-20] MEDS: METOCLOPRAMIDE 10 MG/2 ML VIAL IVP SCH ×4 (06:33→23:00)
[2023-02-20] MEDS: IPRATROPIUM 0.5 MG/2.5 ML INH IH SCH ×4 (07:24→23:15)
[2023-02-20] MEDS: THIAMINE HCL 100 MG TABLET PO SCH (09:32)
[2023-02-20] MEDS: AMLODIPINE 5 MG TAB PO SCH (09:32)
[2023-02-20] MEDS: HYDRALAZINE 25MG TABLET PO SCH ×3 (09:32→21:35)
[2023-02-20] MEDS: Vitamin B Complex/Vit C/Folic Acid PO SCH (09:32)
[2023-02-20] MEDS: PANTOPRAZOLE 40 MG/VIAL IVP SCH ×2 (09:32→21:35)
[2023-02-20] MEDS: METOPROLOL TARTRATE 50 MG TAB PO SCH ×3 (09:32→21:35)
[2023-02-20] MEDS: BALSAM PERU/CASTOR OIL 60 GM TUBE TP SCH ×2 (09:33→21:38)
[2023-02-20] MEDS: CEFTRIAXONE 2GM VIAL IVPB SCH (12:09)
[2023-02-20 16:01] LABS: ABG BASE EXCESS 2.6 mmol/L (-2.0-3.0); ABG HCO3 26.9 mmol/L (21.0-28.0); ABG OXYGEN SATURATION 92.1 % (95.0-99.0); ABG PCO2 41 mmHg (32-45); DEVICE COMMENT RN REBECA; PO2, ARTERIAL BG 60.5 mmHg (83.0-108.0); VENT MODE, BG RA (ROOM AIR)
[2023-02-20] MEDS: ATORVASTATIN 20 MG TABLET PO SCH (21:35)
[2023-02-21] VITALS (49 sets, daily range): BP systolic 95–180; BP diastolic 50–101; PULSE 79–112; RESP 8–36; TEMP 98.1–98.4; O2SAT 93–99
[2023-02-21 04:10] LABS: BASOPHILS # (AUTO) 0.09 K/uL (0.00-0.20); BASOPHILS % (AUTO) 1.1 % (0.0-5.0); EOSINOPHILS # (AUTO) 0.27 K/uL (0.00-0.70); EOSINOPHILS % (AUTO) 3.2 % (0.0-8.0); HEMATOCRIT 27.5 % (36-48); IMMATURE GRANULOCYTE ABSOLUTE 0.12 K/uL (0-1); LYMPHOCYTES # (AUTO) 1.6 K/uL (1.0-4.8); LYMPHOCYTES % (AUTO) 19.1 % (21.0-51.0); MEAN CORPUSCULAR HEMOGLOBIN 30.5 pg (27.0-33.0); MEAN CORPUSCULAR HGB CONC 32.4 g/dL (32.0-36.0); MEAN CORPUSCULAR VOLUME 94.2 fL (79-99); MONOCYTES % (AUTO) 11.8 % (3.0-13.0); NEUTROPHILS # (AUTO) 5.4 K/uL (1.8-7.7); NEUTROPHILS % (AUTO) 63.4 % (40.0-77.0); PLATELET COUNT (AUTO) 310 K/uL (130-400); RED BLOOD CELL COUNT(AUTO) 2.92 MIL/uL (4.00-5.50); RED CELL DISTRIBUTION WIDTH 17.8 % (11.0-15.5); WHITE BLOOD COUNT (AUTO) 8.5 K/uL (4.8-10.8)
[2023-02-21 04:40] LABS: PHOSPHORUS 6.3 mg/dL (2.5-4.9); POTASSIUM 3.5 mmol/L (3.5-5.1)
[2023-02-21 04:47] LABS: CREATININE 9.6 mg/dL (0.5-1.5)
[2023-02-21] MEDS: METOCLOPRAMIDE 10 MG/2 ML VIAL IVP SCH ×2 (06:10→11:55)
[2023-02-21] MEDS: IPRATROPIUM 0.5 MG/2.5 ML INH IH SCH ×4 (06:28→23:49)
[2023-02-21] MEDS: EPOETIN ALFA-EPBX (NON-ESRD) 10,000 UNIT/ML VIAL SQ SCH (09:00)
[2023-02-21] MEDS: AMLODIPINE 5 MG TAB PO SCH ×2 (09:00→09:09)
[2023-02-21] MEDS: METOPROLOL TARTRATE 50 MG TAB PO SCH ×3 (09:00→21:04)
[2023-02-21] MEDS: HYDRALAZINE 25MG TABLET PO SCH ×4 (09:00→21:05)
[2023-02-21] MEDS: Vitamin B Complex/Vit C/Folic Acid PO SCH ×2 (09:00→09:09)
[2023-02-21] MEDS: THIAMINE HCL 100 MG TABLET PO SCH ×2 (09:00→09:09)
[2023-02-21] MEDS: PANTOPRAZOLE 40 MG/VIAL IVP SCH ×2 (09:03→21:05)
[2023-02-21] MEDS: HEPARIN 5,000 UNIT VIAL SQ SCH ×2 (09:08→16:32)
[2023-02-21] MEDS: BALSAM PERU/CASTOR OIL 60 GM TUBE TP SCH ×2 (09:10→21:16)
[2023-02-21 09:53] LABS: HEMATOCRIT 29.4 % (36-48); MEAN CORPUSCULAR HEMOGLOBIN 30.1 pg (27.0-33.0); MEAN CORPUSCULAR VOLUME 94.2 fL (79-99); RED BLOOD CELL COUNT(AUTO) 3.12 MIL/uL (4.00-5.50); RED CELL DISTRIBUTION WIDTH 18.2 % (11.0-15.5); WHITE BLOOD COUNT (AUTO) 8.8 K/uL (4.8-10.8)
[2023-02-21 10:15] LABS: ALANINE AMINOTRANSFERASE 31 U/L (12-78); ALBUMIN 2.4 g/dL (3.5-5.0); AMMONIA < 10 umol/L (11-32); ASPARTATE AMINOTRANSFERASE 23 U/L (10-37); BILIRUBIN,TOTAL 0.4 mg/dL (0.2-1.0); CARBON DIOXIDE 26 mmol/L (21-32); CHLORIDE 99 mmol/L (101-111); GLOMERULAR FILTR. RATE CALC 4 mL/min (>90); GLUCOSE,RANDOM 104 mg/dL (70-105); PHOSPHORUS 6.9 mg/dL (2.5-4.9); POTASSIUM 3.5 mmol/L (3.5-5.1); SODIUM SERUM 142 mmol/L (136-145); THYROID STIMULATING HORMONE 7.52 uIU/mL (0.36-3.74); TOTAL PROTEIN, SERUM 6.4 g/dL (6.0-8.3); UREA NITROGEN, BLOOD 41 mg/dL (7-18)
[2023-02-21 10:19] LABS: ABG BASE EXCESS -0.4 mmol/L (-2.0-3.0); ABG HCO3 24.3 mmol/L (21.0-28.0); ABG OXYGEN SATURATION 91.2 % (95.0-99.0); ABG PCO2 40 mmHg (32-45); CARBON MONOXIDE 0.5; HHb 8.7; PO2, ARTERIAL BG 64.4 mmHg (83.0-108.0); VENT MODE, BG RA (ROOM AIR)
[2023-02-21 10:42] LABS: CREATININE 10.4 mg/dL (0.5-1.5)
[2023-02-21] MEDS: CEFTRIAXONE 2GM VIAL IVPB SCH (11:55)
[2023-02-21] MEDS: HEPARIN 5,000 UNIT VIAL IJ SCH (16:50)
[2023-02-21] MEDS: ATORVASTATIN 20 MG TABLET PO SCH (21:05)
[2023-02-21] MEDS ORDERED: LORAZEPAM 2 MG/ML 1 ML VIAL ONE (22:18)
[2023-02-21] MEDS ORDERED: LORAZEPAM 2 MG/ML 1 ML VIAL IVP ONE (22:30)
[2023-02-22] VITALS (38 sets, daily range): BP systolic 66–187; BP diastolic 34–121; PULSE 87–118; RESP 12–40; O2SAT 95–99
[2023-02-22] MEDS: HEPARIN 5,000 UNIT VIAL SQ SCH ×3 (01:00→17:43)
[2023-02-22 05:19] LABS: MEAN CORPUSCULAR HEMOGLOBIN 31.1 pg (27.0-33.0); MEAN CORPUSCULAR HGB CONC 32.5 g/dL (32.0-36.0); MEAN CORPUSCULAR VOLUME 95.8 fL (79-99); PLATELET COUNT (AUTO) 353 K/uL (130-400); RED BLOOD CELL COUNT(AUTO) 3.34 MIL/uL (4.00-5.50); RED CELL DISTRIBUTION WIDTH 18.4 % (11.0-15.5); WHITE BLOOD COUNT (AUTO) 9.4 K/uL (4.8-10.8)
[2023-02-22 05:33] LABS: CREATININE 6.9 mg/dL (0.5-1.5); POTASSIUM 3.3 mmol/L (3.5-5.1)
[2023-02-22 05:37] LABS: BASOPHILS % (MANUAL) 2 % (0-2); EOSINOPHILS % (MANUAL) 1 % (1-6); LYMPHOCYTES % (MANUAL) 10 % (22-44); MAN.DIFF COMMENT-IMPRESSION MANUAL DIFFERENTIAL; MONOCYTES % (MANUAL) 9 % (2-9); PLATELET MORPHOLOGY COMMENT ADEQUATE; SEGMENTED NEUTROPHILS % 78 % (40-70); TOTAL CELLS COUNTED 100; WBC MORPHOLOGY CONSISTENT W/DIFF
[2023-02-22] MEDS: IPRATROPIUM 0.5 MG/2.5 ML INH IH SCH ×4 (06:53→23:11)
[2023-02-22] MEDS: Vitamin B Complex/Vit C/Folic Acid PO SCH (07:44)
[2023-02-22] MEDS: AMLODIPINE 5 MG TAB PO SCH (07:44)
[2023-02-22] MEDS: PANTOPRAZOLE 40 MG/VIAL IVP SCH ×2 (07:44→20:28)
[2023-02-22] MEDS: POTASSIUM CHLORIDE 10% ELIXIR 20 MEQ/15 ML UDCUP PO PRN ×2 (07:45→13:56)
[2023-02-22] MEDS: METOPROLOL TARTRATE 50 MG TAB PO SCH ×3 (07:50→20:28)
[2023-02-22] MEDS: HYDRALAZINE 25MG TABLET PO SCH ×3 (07:50→21:51)
[2023-02-22] MEDS: THIAMINE HCL 100 MG TABLET PO SCH (07:50)
[2023-02-22] MEDS: BALSAM PERU/CASTOR OIL 60 GM TUBE TP SCH ×2 (09:12→20:29)
[2023-02-22] MEDS: HYDRALAZINE 20MG/ML VIAL IV PRN ×2 (09:58→22:53)
[2023-02-22] MEDS: CEFTRIAXONE 2GM VIAL IVPB SCH (11:32)
[2023-02-22] MEDS ORDERED: CALCIUM AC 667MG CAP PO SCH (12:00)
[2023-02-22] MEDS: SEVELAMER HCL 800 MG TABLET PO SCH ×2 (13:15→17:42)
[2023-02-22] MEDS: ATORVASTATIN 20 MG TABLET PO SCH (20:28)
[2023-02-23] VITALS (82 sets, daily range): BP systolic 75–189; BP diastolic 32–98; PULSE 70–117; RESP 9–194; TEMP 97–98.3; O2SAT 93–99
[2023-02-23] MEDS: HEPARIN 5,000 UNIT VIAL SQ SCH ×3 (01:13→17:58)
[2023-02-23 03:53] LABS: BASOPHILS % (AUTO) 1.2 % (0.0-5.0); EOSINOPHILS # (AUTO) 0.22 K/uL (0.00-0.70); EOSINOPHILS % (AUTO) 2.7 % (0.0-8.0); HEMATOCRIT 28.5 % (36-48); IMMATURE GRANULOCYTE ABSOLUTE 0.05 K/uL (0-1); LYMPHOCYTES # (AUTO) 1.4 K/uL (1.0-4.8); LYMPHOCYTES % (AUTO) 17.7 % (21.0-51.0); MEAN CORPUSCULAR HEMOGLOBIN 30.4 pg (27.0-33.0); MEAN CORPUSCULAR HGB CONC 32.3 g/dL (32.0-36.0); MEAN CORPUSCULAR VOLUME 94.1 fL (79-99); MONOCYTES % (AUTO) 12.5 % (3.0-13.0); NEUTROPHILS # (AUTO) 5.3 K/uL (1.8-7.7); NEUTROPHILS % (AUTO) 65.3 % (40.0-77.0); PLATELET COUNT (AUTO) 312 K/uL (130-400); RED BLOOD CELL COUNT(AUTO) 3.03 MIL/uL (4.00-5.50); RED CELL DISTRIBUTION WIDTH 18.3 % (11.0-15.5); WHITE BLOOD COUNT (AUTO) 8.1 K/uL (4.8-10.8)
[2023-02-23 04:05] LABS: INR < 0.93 (0.85-1.15); PROTHROMBIN TIME 10.3 SEC (9.6-11.6)
[2023-02-23 04:06] LABS: ALBUMIN 2.7 g/dL (3.5-5.0); BILIRUBIN,TOTAL 0.4 mg/dL (0.2-1.0); PARTIAL THROMBOPLASTIN TIME 24.2 SEC (26.3-35.5); PHOSPHORUS 4.4 mg/dL (2.5-4.9); POTASSIUM 4.1 mmol/L (3.5-5.1); TOTAL PROTEIN, SERUM 6.7 g/dL (6.0-8.3)
[2023-02-23 04:29] LABS: CREATININE 8.7 mg/dL (0.5-1.5)
[2023-02-23] MEDS: IPRATROPIUM 0.5 MG/2.5 ML INH IH SCH ×4 (06:26→23:32)
[2023-02-23] MEDS: Vitamin B Complex/Vit C/Folic Acid PO SCH (07:13)
[2023-02-23] MEDS: METOPROLOL TARTRATE 50 MG TAB PO SCH ×3 (07:13→20:19)
[2023-02-23] MEDS: SEVELAMER HCL 800 MG TABLET PO SCH ×3 (07:13→17:00)
[2023-02-23] MEDS: AMLODIPINE 5 MG TAB PO SCH (07:13)
[2023-02-23] MEDS: HYDRALAZINE 25MG TABLET PO SCH ×3 (07:13→20:19)
[2023-02-23] MEDS: BALSAM PERU/CASTOR OIL 60 GM TUBE TP SCH ×2 (07:14→20:20)
[2023-02-23] MEDS: PANTOPRAZOLE 40 MG/VIAL IVP SCH ×2 (09:46→20:18)
[2023-02-23] MEDS: EPOETIN ALFA-EPBX (NON-ESRD) 10,000 UNIT/ML VIAL SQ SCH (10:01)
[2023-02-23] MEDS ORDERED: 0.9% NACL 500ML IV.SOLN 500 ML IV ONE (11:10)
[2023-02-23] MEDS ORDERED: MIDAZOLAM HCL 1 MG/ML 2ML VIAL ONE (11:29)
[2023-02-23] MEDS ORDERED: LIDOCAINE PF 100MG/5ML (2%) SYRINGE 5ML ONE (11:29)
[2023-02-23] MEDS ORDERED: SUCCINYLCHOLINE CHLORIDE 20 MG/ML 10 ML VIAL ONE (11:29)
[2023-02-23] MEDS ORDERED: DEXAMETHASONE SOD PHOSPHATE 10MG/ML 1ML VIAL ONE (11:29)
[2023-02-23] MEDS ORDERED: CEFAZOLIN SODIUM 2 GM VIAL ONE ×2 (11:29→19:26)
[2023-02-23] MEDS ORDERED: NEOSTIGMINE 5MG/5ML SYR IV ONE (11:30)
[2023-02-23] MEDS ORDERED: GLYCOPYRROLATE 1 MG/5 ML SYRINGE ONE (11:30)
[2023-02-23] MEDS ORDERED: PROPOFOL 10 MG/ML 20ML VIAL IV ONE (11:30)
[2023-02-23] MEDS ORDERED: ONDANSETRON 4MG INJ ONE (11:30)
[2023-02-23] MEDS ORDERED: ROCURONIUM 10MG/1ML SYR 10 MG/ML ML ONE (11:31)
[2023-02-23] MEDS ORDERED: CEFAZOLIN SODIUM 1 GM VIAL IRRIG ONE (12:04)
[2023-02-23] MEDS ORDERED: CEFAZOLIN SODIUM 1 GM VIAL ONE (12:13)
[2023-02-23] MEDS ORDERED: FENTANYL CITRATE PF 50 MCG/1 ML 2ML VIAL ONE (12:26)
[2023-02-23] MEDS ORDERED: PHENYLEPHRINE HCL 10 MG/ML 1ML VIAL IV ONE (12:28)
[2023-02-23] MEDS: ACETAMINOPHEN 325 MG TAB PO PRN (20:17)
[2023-02-23] MEDS: ATORVASTATIN 20 MG TABLET PO SCH (20:17)
[2023-02-23] MEDS ORDERED: MIDODRINE HCL 5 MG TABLET ONE (21:54)
[2023-02-23] MEDS ORDERED: MIDODRINE HCL 5 MG TABLET PO SCH (22:00)
[2023-02-24] VITALS (39 sets, daily range): BP systolic 95–161; BP diastolic 38–102; PULSE 87–107; RESP 12–54; O2SAT 93–98
[2023-02-24] MEDS ORDERED: KETOROLAC 15MG/ML VIAL (15MG/ML) IV ONE ×2 (01:30→05:00)
[2023-02-24] MEDS: HEPARIN 5,000 UNIT VIAL SQ SCH ×3 (01:38→17:00)
[2023-02-24 04:46] LABS: BASOPHILS # (AUTO) 0.12 K/uL (0.00-0.20); BASOPHILS % (AUTO) 1.3 % (0.0-5.0); EOSINOPHILS # (AUTO) 0.34 K/uL (0.00-0.70); EOSINOPHILS % (AUTO) 3.8 % (0.0-8.0); HEMATOCRIT 28.3 % (36-48); IMMATURE GRANULOCYTE ABSOLUTE 0.06 K/uL (0-1); LYMPHOCYTES # (AUTO) 1.9 K/uL (1.0-4.8); MEAN CORPUSCULAR HEMOGLOBIN 29.8 pg (27.0-33.0); MEAN CORPUSCULAR HGB CONC 31.1 g/dL (32.0-36.0); MEAN CORPUSCULAR VOLUME 95.9 fL (79-99); MONOCYTES # (AUTO) 1.2 K/uL (0.1-1.0); MONOCYTES % (AUTO) 13.3 % (3.0-13.0); NEUTROPHILS # (AUTO) 5.3 K/uL (1.8-7.7); NEUTROPHILS % (AUTO) 59.9 % (40.0-77.0); PLATELET COUNT (AUTO) 353 K/uL (130-400); RED BLOOD CELL COUNT(AUTO) 2.95 MIL/uL (4.00-5.50); RED CELL DISTRIBUTION WIDTH 18.6 % (11.0-15.5); WHITE BLOOD COUNT (AUTO) 8.9 K/uL (4.8-10.8)
[2023-02-24 05:02] LABS: ALBUMIN 2.6 g/dL (3.5-5.0); BILIRUBIN,TOTAL 0.3 mg/dL (0.2-1.0); CREATININE 6.4 mg/dL (0.5-1.5); PHOSPHORUS 4.7 mg/dL (2.5-4.9); TOTAL PROTEIN, SERUM 6.6 g/dL (6.0-8.3)
[2023-02-24] MEDS: IPRATROPIUM 0.5 MG/2.5 ML INH IH SCH ×2 (07:01→11:15)
[2023-02-24] MEDS: HYDRALAZINE 25MG TABLET PO SCH ×2 (08:47→15:02)
[2023-02-24] MEDS: SEVELAMER HCL 800 MG TABLET PO SCH ×3 (08:47→17:00)
[2023-02-24] MEDS: METOPROLOL TARTRATE 50 MG TAB PO SCH ×2 (08:47→15:02)
[2023-02-24] MEDS: Vitamin B Complex/Vit C/Folic Acid PO SCH (08:47)
[2023-02-24] MEDS: PANTOPRAZOLE 40 MG/VIAL IVP SCH (08:47)
[2023-02-24] MEDS: AMLODIPINE 5 MG TAB PO SCH (08:48)
[2023-02-24] MEDS: BALSAM PERU/CASTOR OIL 60 GM TUBE TP SCH (09:00)
[2023-02-24] MEDS: ONDANSETRON 4MG INJ IV PRN (13:44)
== END 2023-02-24 17:00 | DRG 853 ==
LOC: EDH 21:06 → UNDOADMIN 21:07 → EDHIP 21:07 → 2CH 02-09 01:49 → 2AH 02-11 09:46 → 2BH 02-21 09:32 → 2DH 02-23 16:00 → 2BH 02-23 16:34
PROVIDERS: ADMIT Hospitalist; ATTEND Hospitalist
PROC: 02HV33Z Insertion of Infusion Device into Superior Vena Cava, Percutaneous Approach (ICD-10-PCS; 2023-02-09)
PROC: B548ZZA Ultrasonography of Superior Vena Cava, Guidance (ICD-10-PCS; 2023-02-09)
PROC: 5A1D70Z Performance of Urinary Filtration, Intermittent, Less than 6 Hours Per Day (ICD-10-PCS; 2023-02-09)
PROC: 5A1D70Z Performance of Urinary Filtration, Intermittent, Less than 6 Hours Per Day (ICD-10-PCS; 2023-02-14)
PROC: 30233N1 Transfusion of Nonautologous Red Blood Cells into Peripheral Vein, Percutaneous Approach (ICD-10-PCS; 2023-02-16)
PROC: 5A1D70Z Performance of Urinary Filtration, Intermittent, Less than 6 Hours Per Day (ICD-10-PCS; 2023-02-16)
PROC: 0DB68ZX Excision of Stomach, Via Natural or Artificial Opening Endoscopic, Diagnostic (ICD-10-PCS; 2023-02-17)
PROC: 0DB78ZX Excision of Stomach, Pylorus, Via Natural or Artificial Opening Endoscopic, Diagnostic (ICD-10-PCS; 2023-02-17)
PROC: 0JH63XZ Insertion of Tunneled Vascular Access Device into Chest Subcutaneous Tissue and Fascia, Percutaneous Approach (ICD-10-PCS; 2023-02-18)
PROC: 02H633Z Insertion of Infusion Device into Right Atrium, Percutaneous Approach (ICD-10-PCS; 2023-02-18)
PROC: B5181ZA Fluoroscopy of Superior Vena Cava using Low Osmolar Contrast, Guidance (ICD-10-PCS; 2023-02-18)
PROC: B548ZZA Ultrasonography of Superior Vena Cava, Guidance (ICD-10-PCS; 2023-02-18)
PROC: 5A1D70Z Performance of Urinary Filtration, Intermittent, Less than 6 Hours Per Day (ICD-10-PCS; 2023-02-18)
PROC: 5A1D70Z Performance of Urinary Filtration, Intermittent, Less than 6 Hours Per Day (ICD-10-PCS; 2023-02-21)
PROC: 5A1D70Z Performance of Urinary Filtration, Intermittent, Less than 6 Hours Per Day (ICD-10-PCS; 2023-02-23)
PROC: 03180JD Bypass Left Brachial Artery to Upper Arm Vein with Synthetic Substitute, Open Approach (ICD-10-PCS; principal; 2023-02-23 11:45)
DX: A41.9 Sepsis, unspecified organism (principal); G93.41 Metabolic encephalopathy; N18.6 End stage renal disease; K25.4 Chronic or unspecified gastric ulcer with hemorrhage; K57.31 Diverticulosis of large intestine without perforation or abscess with bleeding; M62.82 Rhabdomyolysis; E87.1 Hypo-osmolality and hyponatremia; N17.9 Acute kidney failure, unspecified; D62 Acute posthemorrhagic anemia; E87.20 Acidosis, unspecified; F05 Delirium due to known physiological condition; F10.939 Alcohol use, unspecified with withdrawal, unspecified; I13.2 Hypertensive heart and chronic kidney disease with heart failure and with stage 5 chronic kidney disease, or end stage renal disease; N30.00 Acute cystitis without hematuria; E86.0 Dehydration; E86.1 Hypovolemia; E87.8 Other disorders of electrolyte and fluid balance, not elsewhere classified; R74.8 Abnormal levels of other serum enzymes; E11.22 Type 2 diabetes mellitus with diabetic chronic kidney disease; E78.00 Pure hypercholesterolemia, unspecified; E83.51 Hypocalcemia; F17.200 Nicotine dependence, unspecified, uncomplicated; E11.42 Type 2 diabetes mellitus with diabetic polyneuropathy; I50.9 Heart failure, unspecified; J44.9 Chronic obstructive pulmonary disease, unspecified; K76.0 Fatty (change of) liver, not elsewhere classified; K82.8 Other specified diseases of gallbladder; G89.29 Other chronic pain; N28.1 Cyst of kidney, acquired; Z20.822 Contact with and (suspected) exposure to COVID-19; R65.20 Severe sepsis without septic shock; Z79.02 Long term (current) use of antithrombotics/antiplatelets; Z82.49 Family history of ischemic heart disease and other diseases of the circulatory system; Z90.710 Acquired absence of both cervix and uterus; Z86.73 Personal history of transient ischemic attack (TIA), and cerebral infarction without residual deficits; Z95.0 Presence of cardiac pacemaker; Z99.2 Dependence on renal dialysis
CPT/HCPCS: 36415; 36558; 36600; 36800; 43239; 70450; 71045; 74176; 76705; 76770; 77001; 80048; 80053; 80061; 80305; 81001; 82040; 82140; 82270; 82306; 82435; 82550; 82565; 82728; 82803; 82947; 82948; 83540; 83550; 83605; 83735; 83880; 83930; 83935; 84100; 84132; 84295; 84300; 84439; 84443; 84484; 84520; 84550; 85014; 85018; 85025; 85027; 85610; 85730; 86701; 86704; 86706; 86803; 86850; 86900; 86901; 86923; 87040; 87077; 87088; 87186; 87340; 87390; 87635; 87804; 88305; 88312; 90935; 92610; 93005; 93306; 93356; 93880; 93970; 94640; 94664; 99291; 99292; A4606; C1750; C9113; G0378; J0330; J0360; J0610; J0690; J0696; J1100; J1200; J1644; J1885; J1940; J2001; J2060; J2250; J2354; J2371; J2405; J2704; J2710; J2765; J3010; J3411; J3475; J3480; J3490; J7030; J7040; J7050; J7070; P9016; Q0169; A4215; A4216; A4221; A4222; A4223; A4600; A4620; A4649; A4663; A4930; A6219; A7002; C1713; C1768; C1894; Q5106

== ENCOUNTER 2023-05-20 06:58 | Emergency (ER) | payer OTHER ==
[~2023-05-20] VITALS: Ht 160 cm; Wt 60.3 kg
[2023-05-20 08:16] VITALS: BP 172/75; O2SAT 94
[2023-05-20 08:20] LABS: BASOPHILS # (AUTO) 0.04 K/uL (0.00-0.20); BASOPHILS % (AUTO) 0.5 % (0.0-5.0); EOSINOPHILS % (AUTO) 2.5 % (0.0-8.0); HEMATOCRIT 35.7 % (36-48); IMMATURE GRANULOCYTE ABSOLUTE 0.03 K/uL (0-1); LYMPHOCYTES # (AUTO) 1.3 K/uL (1.0-4.8); LYMPHOCYTES % (AUTO) 16.9 % (21.0-51.0); MEAN CORPUSCULAR HEMOGLOBIN 32.1 pg (27.0-33.0); MEAN CORPUSCULAR HGB CONC 31.9 g/dL (32.0-36.0); MEAN CORPUSCULAR VOLUME 100.6 fL (79-99); MONOCYTES # (AUTO) 0.7 K/uL (0.1-1.0); MONOCYTES % (AUTO) 8.3 % (3.0-13.0); NEUTROPHILS # (AUTO) 5.6 K/uL (1.8-7.7); NEUTROPHILS % (AUTO) 71.4 % (40.0-77.0); PLATELET COUNT (AUTO) 250 K/uL (130-400); RED BLOOD CELL COUNT(AUTO) 3.55 MIL/uL (4.00-5.50); RED CELL DISTRIBUTION WIDTH 15.4 % (11.0-15.5); WHITE BLOOD COUNT (AUTO) 7.9 K/uL (4.8-10.8)
[2023-05-20 08:34] LABS: INR <= 0.93 (0.85-1.15); PROTHROMBIN TIME 10.6 SEC (9.6-11.6)
[2023-05-20 08:35] LABS: PARTIAL THROMBOPLASTIN TIME 25.9 SEC (26.3-35.5)
[2023-05-20 08:48] LABS: ALBUMIN 3.8 g/dL (3.5-5.0); BILIRUBIN,TOTAL 0.5 mg/dL (0.2-1.0); TOTAL PROTEIN, SERUM 7.6 g/dL (6.0-8.3)
[2023-05-20] MEDS: CEFTRIAXONE 1G VIAL IVPB ONE (09:14)
[2023-05-20] MEDS: ONDANSETRON 4MG INJ IVP ONE (09:14)
[2023-05-20] MEDS: AZITHROMYCIN 500MG+NS 250ML 250 ML IVPB SCH (09:14)
[2023-05-20] MEDS: LEVOFLOXACIN 750 MG TABLET PO SCH (09:27)
[2023-05-20] MEDS: IPRATROPIUM/ALBUTEROL SULFATE 3 ML SOLUTION IH ONE (09:36)
[2023-05-20 09:38] VITALS: PULSE 85; RESP 18
[2023-05-20] MEDS ORDERED: PRED20TA3 PO (10:48)
[2023-05-20] MEDS ORDERED: AUD IH (10:48)
== END 2023-05-20 11:18 | disposition home or self-care (01) ==
LOC: EDH 06:58
DX: J44.1 Chronic obstructive pulmonary disease with (acute) exacerbation (principal); I12.0 Hypertensive chronic kidney disease with stage 5 chronic kidney disease or end stage renal disease; E11.22 Type 2 diabetes mellitus with diabetic chronic kidney disease; N18.6 End stage renal disease; Z79.02 Long term (current) use of antithrombotics/antiplatelets; Z90.710 Acquired absence of both cervix and uterus
CPT/HCPCS: 36415; 71045; 80053; 82550; 83605; 84484; 85025; 85610; 85730; 87040; 87077; 87088; 87186; 94640; J0456; J0696; J2405